=== PATIENT | female | born 1955 | race Caucasian/White ===

== ENCOUNTER 2016-05-22 06:43 | Emergency (ER) | payer OTHER ==
--- NOTE | 2016-05-22 06:52 | PDOC ---
History of Present Illness - General History Source: EMS, Family Exam Limitations: Clinical Condition (Altered Mental status ) - History of Present Illness Initial Comments: 05/22/16 07:25 The patient is a 61 year old female brought in via EMS and presenting with her family, with a significant past medical history of anemia, HTN, diabetes and liver cirrhosis, who presents to the emergency department with altered mental status and confusion onset this morning when she woke up. The family states that this has happened to the patient in the past where she became confused and began to slur her speech. The family reports that the patient only uses her insulin when she wants to use it The family denies any trauma or injury to the patient. The daughter states that the patient contracted Hepatitis C when she had multiple blood transfusions a few decades ago. Fingerstick on bedside: 287 Allergies: None Past surgical history: Cholecystectomy, orthopedic surgery Social history: No alcohol, tobacco or drug use reported <Berlin Chery - Last Filed: 05/22/16 15:55> <Nando Mendieta - Last Filed: 05/22/16 15:57> - General Chief Complaint: CVA/TIA Stated Complaint: BLOOD SUGAR PROBLEM Past History <Berlin Chery - Last Filed: 05/22/16 15:55> - Past Medical History Anemia: Yes Diabetes: Yes HTN: Yes Liver Disease: Yes - Surgical History Cholecystectomy: Yes Orthopedic Surgery: Yes - Psycho/Social/Smoking Cessation Hx Anxiety: No Suicidal Ideation: No Smoking Status: No Smoking History: Never smoked Number of Cigarettes Smoked Daily: 0 Hx Alcohol Use: No Drug/Substance Use Hx: No Substance Use Type: None Hx Substance Use Treatment: No <Nando Mendieta - Last Filed: 05/22/16 15:57> - Past Medical History Allergies/Adverse Reactions: Allergies Allergy/AdvReac Type Severity Reaction Status Date / Time No Known Allergies Allergy Verified 05/22/16 06:49 Home Medications: Ambulatory Orders Nadolol 20 mg PO DAILY 05/22/16 Review of Systems - Review of Systems Able to Perform ROS?: No Comments:: 05/22/16 07:26 Unable to obtain due to patient altered mental status. <Berlin Chery - Last Filed: 05/22/16 15:55> *Physical Exam - Vital Signs Last Vital Signs Temp Pulse Resp BP Pulse Ox 97.7 F 91 H 14 172/85 98 05/22/16 06:50 05/22/16 06:50 05/22/16 06:50 05/22/16 06:50 05/22/16 06:50 - Physical Exam Comments: 05/22/16 07:26 GENERAL: Awake, alert, but non communicative. HEAD: No signs of trauma, normocephalic, atraumatic EYES: Pupils reactive to light. PERRLA, EOMI, sclera anicteric, conjunctiva clear ENT: Auricles normal inspection, hearing grossly normal, nares patent, oropharynx clear without exudates. Moist mucosa NECK: Normal ROM, supple, no lymphadenopathy, JVD, or masses LUNGS: No distress, clear to auscultation bilaterally HEART: Regular rate and rhythm, normal S1 and S2, no murmurs, rubs or gallops, peripheral pulses normal and equal bilaterally. ABDOMEN: Soft, nontender, normoactive bowel sounds. No guarding, no rebound. No masses EXTREMITIES: Normal inspection, Normal range of motion, no edema. No clubbing or cyanosis. NEUROLOGICAL: Does not follow commands. Unable to appreciate NIH stroke scale due to altered mental status with confusion. SKIN: Warm, Dry, normal turgor, no rashes or lesions noted. <Berlin Chery - Last Filed: 05/22/16 15:55> NIH Stroke Scale - Last Known Well Date/Time & Onset Date Last Known Well: 05/21/16 - Initial Evaluation Level of consciousness: Not alert, but arousable with minimal stimulation Ask patient the month and their age: Both incorrect Ask patient to open & close eyes; make fist and let go: Both incorrect Best gaze (horizontal eye movement): Normal Visual field testing: No visual field loss Facial paresis (Show teeth/raise eyebrows/close eyes tight): Normal symmetrical movement Motor Function: Left Arm: Normal Motor Function: Right Arm: Normal (extends arm 90 (or 45) degrees for 10 seconds without drift Motor Function: Left Leg: Normal (extends leg 30 degrees for 5 seconds without drift) Motor Function: Right Leg: Normal (extends leg 30 degrees for 5 seconds without drift) Limb Ataxia: No ataxia Sensory(Use pinprick test arms,legs,trunk,face/side to side): Normal Best language (Describe picture, name items, read sentences): No Aphasia Dysarthria (read several words): Mild to moderate slurring of words Extinction and Inattention: Inattention or extinction bilaterally to one of the sensory modalities (highly uncooperative, will not follow commands, unable to do accurate NIHSS!) - Total Score NIH Stroke Scale Score: 7 <Nando Mendieta - Last Filed: 05/22/16 15:57> tPA Exclusion checklist 3-4.5h - Time Elapsed Date last known well: 05/21/16 - Thrombolytic Therapy Candidate Is patient eligible for thrombolytic therapy: No - Exclusion Criteria 3-4.5 hr SBP greater than 185 or DBP greater than 110mmHg despite tx: No Recent IC/spinal surgery,head trauma or stroke<3mos.: No Hx IC hemorrhage, IC neoplasm, AV malformation or aneurysm: No Active internal bleeding: No Blding diathesis(low plt ct, inc PTT,INR>1.7 or use of NOAC): No CT demonstrates multilobar infarct(>1/3 cerebral hemiphere): No Arterial puncture at noncompressible site in previous 7 days: No Blood glucose concentration less than 50mg/dL (2.7mmol/L): No - Relative Exclusion Criteria 3-4.5 hr Life expectancy <1 yr or severe co-morbid illness: No : No Patient/family refused: No Rapid improvement: No Stroke severity too mild: No Recent acute IL (w/in previous 3 months): No Seizure at onset with postictal residual neuro impairments: No Major surgery or serious trauma w/in previous 14 days: No Recent GI or hemorrhage (w/in previous 21 days): No - Add'l Relative Exclusion 3-4.5 hr Age > 80: No Hx of both diabetes AND prior ischemic stroke: No Taking an oral anticoagulant regardless of INR: No NIHSS >25: No - Ineligibility reason(s) Reasons No tPA given: Outside of window - delayed arrival (woke up like this, outside of window.) <Nando Mendieta - Last Filed: 05/22/16 15:57> Critical Care Time/[facility] Note - Medical Decision Making Note: 05/22/16 07:[address] Reviewed by: Dr. Beau East Impression: No evidence of acute intracranial hemorrhage, edema, midline shift, mass effect, or skull fracture. No CT evidence of acute territorial infarction. Approximately 6 mm x 6.3 mm x 6.5 mm right posterior parafalcine calcified meningioma. Chest X-Ray Reviewed by: Dr. Radha Natarajan Impression: Suboptimal inspiratory effort. CT abdomen and pelvis with contrast Reviewed by: Dr. Huey Mcdaniel Impression: Findings consistent with cirrhosis with splenomegaly and extensice varices, unchanged since 12/05/2015. No acute pathology within the abdomen or pelvis. The patient wants to sign out AMA and is refusing admission. <Berlin Chery - Last Filed: 05/22/16 15:55> - Medical Decision Making Note: 05/22/16 15:56 Patient has capacity and is signing out AMA. Refuses admission. <Nando Mendieta - Last Filed: 05/22/16 15:57> Discharge Disposition <Berlin Chery - Last Filed: 05/22/16 15:55> - Discharge Dispostion Last Admission D/C Date: 12/10/15 Admit: No <Nando Mendieta - Last Filed: 05/22/16 15:57> - Diagnosis Hepatic encephalopathy - Discharge Dispostion Disposition: AGAINST MEDICAL ADVICE Condition at time of disposition: Stable
[2016-05-22 06:54] VITALS: BMI 29.2
[2016-05-22 07:29] LABS: BASOPHIL 0.5 % (0-2.0); EOSINOPHIL 3.1 % (0-4.5); MCHC 32.8 g/dl (32.0-36.0); MEAN CELL VOLUME 82.3 fl (80-96); MEAN PLT VOLUME 9.1 fl (7.5-11.1); NEUTROPHILS 68.9 % (42.8-82.8); PLATELET COUNT 111 K/MM3 (134-434); RDW 17.1 % (11.6-15.6); WHITE BLOOD COUNT 4.7 K/mm3 (4.0-10.0)
[2016-05-22] MEDS ORDERED: NITROGLYCERIN SUBLINGUAL 1/150 0.4 MG TAB SL ONE (07:31)
[2016-05-22 07:44] LABS: BILIRUBIN,TOTAL 1.1 mg/dL (0.2-1.0)
[2016-05-22 07:47] LABS: ALK PHOS 279 U/L (45-117); TROPONIN I < 0.02 ng/ml (0.00-0.05)
[2016-05-22 08:13] LABS: INR 1.42 (0.82-1.09); PROTHROMBIN TIME (PATIENT) 15.7 SEC (9.98-11.88)
[2016-05-22 08:16] LABS: ACTIVATED PTT 30.9 SECONDS (26.9-34.4)
[2016-05-22 08:44] LABS: ALBUMIN 3.4 g/dl (3.4-5.0); ANION GAP 10 (8-16); CALCIUM 8.6 mg/dL (8.5-10.1); CO2 22 mmol/L (21-32); CREATININE 0.6 mg/dL (0.55-1.02); GLUCOSE,RANDOM 252 mg/dL (74-106); SGOT/AST 24 U/L (15-37); SGPT/ALT 26 U/L (12-78); TOT PROT 7.5 g/dl (6.4-8.2)
[2016-05-22 09:16] LABS: URINE APPEARANCE CLEAR; URINE BILIRUBIN NEGATIVE (NEGATIVE); URINE BLOOD NEGATIVE (NEGATIVE); URINE COLOR LTYELLOW; URINE GLUCOSE (UA) 3+ (NEGATIVE); URINE KETONE TRACE (NEGATIVE); URINE LEUK ESTERASE NEGATIVE (NEGATIVE); URINE NITRITE NEGATIVE (NEGATIVE); URINE PROTEIN NEGATIVE (NEGATIVE); URINE UROBILINOGEN NEGATIVE E.U./dl (0.2-1.0)
[2016-05-22 09:50] LABS: URINE MARIJUANA THC NEGATIVE ng/ml (CUTOFF=50)
[2016-05-22] MEDS ORDERED: LACTULOSE 20 GM/30 ML UDC (FOR ORAL USE ONLY) PO ONE (15:50)
[2016-05-22 16:34] VITALS: BP 133/62; PULSE 77; TEMP 97.9
--- NOTE | 2016-05-22 23:19 | EKG ---
Test Reason : Blood Pressure : / mmHG Vent. Rate : 083 BPM Atrial Rate : 083 BPM P-R Int : 142 ms QRS Dur : 094 ms QT Int : 402 ms P-R-T Axes : 054 081 051 degrees QTc Int : 472 ms NORMAL SINUS RHYTHM RSR' OR QR PATTERN IN V1 SUGGESTS RIGHT VENTRICULAR CONDUCTION DELAY BORDERLINE ECG WHEN COMPARED WITH ECG OF 05-DEC-2015 21:56, VENT. RATE HAS DECREASED BY 44 BPM Confirmed by VIRGIL TUCKER MD ([id number]) on 05/22/2016 11:19:17 PM Referred By: Confirmed By:VIRGIL TUCKER MD
== END 2016-05-22 16:34 | disposition left against medical advice (07) ==
LOC: JER 06:43
DX: Z53.21 Procedure and treatment not carried out due to patient leaving prior to being seen by health care provider (principal); E11.9 Type 2 diabetes mellitus without complications; D64.9 Anemia, unspecified; I10 Essential (primary) hypertension
CPT/HCPCS: 36415; 70450-TC; 71010-TC; 74177-TC; 80053; 80307; 81003; 82140; 82550; 84484; 85025; 85610; 85730; 87086; 93005; 93010; 99285-25; Q9967

== ENCOUNTER 2018-04-17 16:09 | Inpatient (IN) | payer OTHER ==
--- NOTE | 2018-04-17 17:27 | PDOC ---
History of Present Illness - General Chief Complaint: Vomiting/Diarrhea Stated Complaint: VOMITING/DIARRHEA Time Seen by Provider: 04/17/18 17:26 History Source: Patient Exam Limitations: No Limitations - History of Present Illness Initial Comments: 04/17/18 17:27 CHIEF COMPLAINT: Vomiting and diarrhea HISTORY OF PRESENT ILLNESS: This is a 63-year-old female with a history of hypertension, cirrhosis, IDDM, and vertigo who presents with three days of "continuous" vomiting and watery diarrhea. She has generalized lower abdominal pain. She denies fevers/chills, dysuria, or any other symptoms. She denies travel. Her daughter (who does not live with her) had similar symptoms requiring IV hydration. They have not eaten in a restaurant together recently. The patient reports that she is able to keep down water, but has diarrhea immediately after any intake. She did take one Immodium today with some relief. She has been feeling dizzy (consistent with prior vertigo symptoms) and fell down 3 steps today. She did not hit her head, lose consciousness, or sustain any injuries. Vital signs on arrival are notable for pulse of 122 and oral temp of 99.9. PCP is Dr. Rojo. REVIEW OF SYSTEMS: GENERAL/CONSTITUTIONAL: No fever or chills. No weakness. No weight change. HEAD, EYES, EARS, NOSE AND THROAT: No change in vision. No ear pain or discharge. No sore throat. CARDIOVASCULAR: No chest pain or palpitations. RESPIRATORY: No cough, wheezing, or shortness of breath. GASTROINTESTINAL: See HPI. GENITOURINARY: No dysuria, frequency, or change in urination. MUSCULOSKELETAL: No joint or muscle swelling or pain. No neck or back pain. SKIN: No rash or easy bruising. NEUROLOGIC: Dizziness/vertigo. PSYCHIATRIC: No depression or anxiety. ENDOCRINE: No increased thirst. No abnormal weight change. HEMATOLOGIC/LYMPHATIC: No anemia, easy bleeding, or history of blood clots. ALLERGIC/IMMUNOLOGIC: No hives or skin allergy. No latex allergy. PHYSICAL EXAM: GENERAL: The patient is awake, alert, and fully oriented, in no acute distress. HEAD: Normal with no signs of trauma. ENT: Pupils equal, round and reactive to light, extraocular movements intact, sclera anicteric, conjunctiva clear. Neck supple. LUNGS: Clear to auscultation bilaterally. Normal excursion. No respiratory distress or use of accessory muscles. CV: RRR, S1/S2, no MRG. Cap refill < 2 sec. ABDOMEN: Soft, non-distended, tender to deep palpation in LLQ. EXTREMITIES: Normal range of motion, no edema. NEUROLOGICAL: Normal speech. Gait deferred. CN II-XII grossly intact. PSYCH: Normal mood, normal affect. SKIN: Warm, dry, normal turgor, no rashes or lesions noted. Past History - Past Medical History Allergies/Adverse Reactions: Allergies Allergy/AdvReac Type Severity Reaction Status Date / Time No Known Allergies Allergy Verified 04/17/18 16:12 Home Medications: Ambulatory Orders Nadolol 20 mg PO DAILY 05/22/16 Enalapril Maleate 2.5 mg PO DAILY 12/17/17 Enalapril Maleate 5 mg PO DAILY 12/17/17 Esomeprazole Magnesium 40 mg PO DAILY 12/17/17 Ferrous Sulfate 325 mg PO DAILY 12/17/17 Insulin Lispro [Humalog Kwikpen] 30 unit SQ DAILY 12/17/17 Lactulose [Cephulac -] 30 ml PO DAILY 12/17/17 Anemia: Yes Asthma: No Cancer: No Cardiac Disorders: No CVA: No COPD: No CHF: No DVT: No Dementia: No Diabetes: Yes GI Disorders: No Disorders: No HTN: Yes Hypercholesterolemia: No Kidney Stones: Yes Liver Disease: Yes Seizures: No Thyroid Disease: No - Surgical History Abdominal Surgery: No Appendectomy: No Cardiac Surgery: No Cholecystectomy: Yes Lung Surgery: No Neurologic Surgery: No Orthopedic Surgery: Yes - Suicide/Smoking/Psychosocial Hx Smoking Status: No Smoking History: Never smoked Have you smoked in the past 12 months: No Number of Cigarettes Smoked Daily: 0 Hx Alcohol Use: No Drug/Substance Use Hx: No Substance Use Type: None Hx Substance Use Treatment: No *Physical Exam - Vital Signs Last Vital Signs Temp Pulse Resp BP Pulse Ox 99.9 F H 121 H 18 165/83 97 04/17/18 16:12 04/17/18 16:12 04/17/18 16:12 04/17/18 16:12 04/17/18 16:12 Moderate Sedation - Procedure Monitoring Vital Signs: Procedure Monitoring Vital Signs Temperature 99.9 F H 04/17/18 16:12 Pulse Rate 121 H 12/27/18 16:12 Respiratory Rate 18 04/17/18 16:12 Blood Pressure 165/83 04/17/18 16:12 O2 Sat by Pulse Oximetry (%) 97 04/17/18 16:12 ED Treatment Course - LABORATORY CBC & Chemistry Diagram: 04/17/18 17:45 04/17/18 17:45 Medical Decision Making - Medical Decision Making 04/17/18 18:06 A/P: 63 year old female with vomiting/diarrhea, tachycardia likely secondary to hypovolemia, and dizziness causing a fall without head trauma/LOC. 1. Labs including CBC, CMP, Mg, lipase, UA 2. Stool cultures if possible 3. IV hydration 4. Zofran 4mg IVP + Meclizine 25mg PO for nausea/vertigo 5. Rectal temp (oral 99.9) 6. CTAP with PO/IV contrast r/o intra-abdominal process, e.g. diverticulitis 7. Re-assess 04/17/18 18:18 Labs notable for WBC 2.8 04/17/18 18:50 Mg 1.7 - replete *DC/Admit/Observation/Transfer - Referrals Referrals: Joel Rojo MD [Primary Care Provider] - - Patient Instructions - Post Discharge Activity
[2018-04-17] MEDS ORDERED: ONDANSETRON 4 MG/2 ML VIAL IVPUSH ONE (17:37)
[2018-04-17] MEDS ORDERED: SODIUM CHLORIDE 1,000 ML IV STA (17:37)
[2018-04-17] MEDS ORDERED: ONDANSETRON 4 MG/2 ML VIAL ONE (17:56)
[2018-04-17 17:58] LABS: BASO % 0.3 % (0-2.0); EOS % 2.8 % (0-4.5); HEMOGLOBIN 13.8 GM/dL (10.7-15.3); LYMPH % 15.5 % (8-40); MCH 33.1 pg (25.7-33.7); MCHC 35.5 g/dl (32.0-36.0); MEAN CELL VOLUME 93.4 fl (80-96); MEAN PLT VOLUME 9.4 fl (7.5-11.1); MONO % 17.5 % (3.8-10.2); NEUT % 63.9 % (42.8-82.8); PLATELET COUNT 75 K/MM3 (134-434); RBC 4.17 M/mm3 (3.60-5.2); RDW 14.3 % (11.6-15.6); WHITE BLOOD COUNT 2.8 K/mm3 (4.0-10.0)
[2018-04-17] MEDS ORDERED: MECLIZINE HCL 25 MG TABLET (FP) PO ONE (17:59)
[2018-04-17] MEDS ORDERED: MECLIZINE HCL 25 MG TABLET (FP) ONE (18:32)
[2018-04-17 18:33] LABS: PLATELET ESTIMATE DECREASED
[2018-04-17 18:38] LABS: ALBUMIN 3.1 g/dl (3.4-5.0); ALK PHOS 188 U/L (45-117); ANION GAP 8 MMOL/L (8-16); BILIRUBIN,TOTAL 1.7 mg/dL (0.2-1); BLOOD UREA NITROGEN 9 mg/dL (7-18); CHLORIDE 102 mmol/L (98-107); CO2 26 mmol/L (21-32); CREATININE 0.6 mg/dL (0.55-1.3); GLUCOSE,RANDOM 174 mg/dL (74-106); LIPASE 368 U/L (73-393); SGPT/ALT 84 U/L (13-61); SODIUM 136 mmol/L (136-145); TOT PROT 6.5 g/dl (6.4-8.2)
[2018-04-17 18:39] LABS: MAGNESIUM 1.7 mg/dL (1.8-2.4); POTASSIUM 3.6 mmol/L (3.5-5.1); SGOT/AST 102 U/L (15-37)
[2018-04-17] MEDS ORDERED: morphine CARPU-JECT 4 MG/1 ML DISP.SYRIN IVPUSH ONE (18:45)
[2018-04-17] MEDS ORDERED: morphine SULFATE 4 MG/ML VIAL ONE (18:48)
--- NOTE | 2018-04-17 19:15 | PDOC ---
*Physical Exam - Vital Signs Last Vital Signs Temp Pulse Resp BP Pulse Ox 99.9 F H 121 H 18 165/83 97 04/17/18 16:12 04/17/18 16:12 04/17/18 16:12 04/17/18 16:12 04/17/18 16:12 - Physical Exam General Appearance: Yes: Appropriately Dressed Cardiovascular: positive: Regular Rhythm, Regular Rate Gastrointestinal/Abdominal: positive: Tender (generalized tenderness), Increased Bowel Sounds Musculoskeletal: negative: Normal Inspection, CVA Tenderness Extremity: positive: Normal Capillary Refill, Normal Inspection Integumentary: positive: Normal Color, Dry, Warm Neurologic: positive: Fully Oriented, Alert, Normal Mood/Affect ED Treatment Course - LABORATORY CBC & Chemistry Diagram: 04/17/18 17:45 04/17/18 17:45 - ADDITIONAL ORDERS Additional order review: Laboratory Results 04/17/18 17:45 Sodium 136 Potassium 3.6 Chloride 102 Carbon Dioxide 26 Anion Gap 8 BUN 9 Creatinine 0.6 Creat Clearance w eGFR > 60 Random Glucose 174 H Calcium 8.0 L Magnesium 1.7 L Total Bilirubin 1.7 H AST 102 H ALT 84 H Alkaline Phosphatase 188 H Total Protein 6.5 Albumin 3.1 L Lipase 368 04/17/18 17:45 RBC 4.17 MCV 93.4 MCHC 35.5 RDW 14.3 MPV 9.4 Neutrophils % 63.9 D Lymphocytes % 15.5 D Monocytes % 17.5 H Eosinophils % 2.8 Basophils % 0.3 - Medications Given in the ED: ED Medications Discontinued Medications Generic Name Dose Route Start Last Admin Trade Name Freq PRN Reason Stop Dose Admin Sodium Chloride 1,000 mls @ 1,000 mls/hr 04/17/18 17:37 04/17/18 18:31 Normal Saline - IV 04/17/18 18:36 1,000 mls/hr ASDIR STA Administration Meclizine HCl 25 mg 04/17/18 17:59 04/17/18 18:33 Antivert - PO 04/17/18 18:00 25 mg ONCE ONE Administration Morphine Sulfate 4 mg 04/17/18 18:45 04/17/18 18:49 Morphine Injection - IVPUSH 04/17/18 18:46 4 mg ONCE ONE Administration Ondansetron HCl 4 mg 04/17/18 17:37 04/17/18 17:59 Zofran Injection IVPUSH 04/17/18 17:38 4 mg ONCE ONE Administration Medical Decision Making - Medical Decision Making 04/17/18 19:41 c/o generalized abdominal discomfort. pending CTAP. 04/17/18 20:57 patient now feeling better. pending CTAP. if negative will PO challenge. may d/ c home if PO is tolerated. 04/17/18 22:43 CTAP : liver cirrhosis, acute pancreatitis, cecum wall edema / duodenitis. mild to moderate ascites. UA: + leuks increased WBC will place on observation status for symptom improvement. will cover with ceftriaxone and flagyl. patient with vertigo. needs IVF hydration. 04/18/18 00:07 Orthostatic v/s supine: HR 100/ b/p 145/81 sitting: HR 101/ 98/ 155/76 standing HR 115 04/18/18 00:09 patient signed out to Beatriz westbrook [employer] for OBS tele stay *DC/Admit/Observation/Transfer Diagnosis at time of Disposition: Gastroenteritis and colitis, viral, Vertigo UTI (urinary tract infection) Qualifiers: Urinary tract infection type: acute cystitis Hematuria presence: without hematuria Qualified Code(s): N30.00 - Acute cystitis without hematuria - Discharge Dispostion Decision to Admit order: Yes - Referrals - Patient Instructions - Post Discharge Activity
[2018-04-17] MEDS ORDERED: MAGNESIUM 1GM/D5W - 1 GM/100 ML IVPB IVPB ONE (20:49)
[2018-04-17] MEDS: SODIUM CHLORIDE 1,000 ML IV SCH (21:06)
[2018-04-17 21:12] LABS: URINE APPEARANCE CLEAR; URINE BILIRUBIN NEGATIVE (<2.0 mg/dL); URINE COLOR AMBER; URINE GLUCOSE (UA) 2+ (NEGATIVE); URINE KETONE TRACE (NEGATIVE); URINE LEUK ESTERASE 1+ (NEGATIVE); URINE NITRITE NEGATIVE (NEGATIVE); URINE PROTEIN 2+ (NEGATIVE); URINE UROBILINOGEN 4.0 E.U/dl mg/dL (0.2-1.0)
[2018-04-17 21:25] LABS: EPI CELLS RARE /HPF (FEW); URINE BACTERIA RARE /hpf (NONE SEEN); URINE MUCUS MODERATE
--- NOTE | 2018-04-17 23:18 | HP ---
Admitting History and Physical - Primary Care Physician PCP: Joel Rojo - Admission Chief Complaint: Vomiting, Diarrhea, Dizziness History of Present Illness: This is a 63 y/o woman with a PMHx of: Cirrhosis, Esophageal Varices, Hepatitis C (on Harvoni), HTN, IDDM, Anemia, Renal Calculi. Who presents to the ED with non bloody, non-bilious vomiting and watery non-bloody diarrhea x 3 days. Patient reports eating home cooked food then developed LLQ. Patient reports that her daughter also developed GI symptoms. Patient reports taking Imodium with some improvement. Patient reports dizziness similar to past episodes of Vertigo. Patient states" I fell down 3 steps today". She denies LOC or head injury. Patient denies fever, chills, SOB, CP, palpitations, constipation., melena, hematochezia, hematuria. Body Technician/Painter: Dr. Theodore ([facility]), [place] [phone] History Source: Patient Limitations to Obtaining History: No Limitations - Past Medical History Cardiovascular: Yes: HTN Gastrointestinal: Yes: Esophageal Varices Hepatobiliary: Yes: Cirrhosis, Hepatitis C Renal/: Yes: Renal Calculi Heme/Onc: Yes: Anemia Endocrine: Yes: Diabetes Mellitus - Past Surgical History Past Surgical History: Yes: Cholecystectomy, Oopherectomy - Smoking History Smoking history: Never smoked Have you smoked in the past 12 months: No Aproximately how many cigarettes per day: 0 - Alcohol/Substance Use Hx Alcohol Use: No History of Substance Use: reports: None - Social History Usual Living Arrangement: Yes: With Spouse ADL: Independent History of Recent Travel: No Home Medications - Allergies Allergies/Adverse Reactions: Allergies Allergy/AdvReac Type Severity Reaction Status Date / Time No Known Allergies Allergy Verified 04/17/18 16:12 - Home Medications Home Medications: Ambulatory Orders Nadolol 20 mg PO DAILY 05/22/16 Enalapril Maleate 2.5 mg PO DAILY 12/17/17 Enalapril Maleate 5 mg PO DAILY 12/17/17 Esomeprazole Magnesium 40 mg PO DAILY 12/17/17 Ferrous Sulfate 325 mg PO DAILY 12/17/17 Insulin Lispro [Humalog Kwikpen] 30 unit SQ DAILY 12/17/17 Lactulose [Cephulac -] 30 ml PO DAILY 12/17/17 Family Disease History - Family Disease History Family Disease History: Diabetes: Father, Mother Review of Systems - Review of Systems Constitutional: reports: Loss of Appetite Eyes: reports: No Symptoms HENT: reports: No Symptoms Neck: reports: No Symptoms Cardiovascular: reports: No Symptoms Respiratory: reports: No Symptoms Gastrointestinal: reports: Abdominal Pain, Diarrhea, Nausea, Vomiting. denies: Melena, Rectal Bleeding, Vomiting Blood Genitourinary: reports: No Symptoms Breasts: reports: No Symptoms Reported Musculoskeletal: reports: No Symptoms Integumentary: reports: No Symptoms Neurological: reports: Dizziness, Headache Endocrine: reports: No Symptoms Hematology/Lymphatic: reports: No Symptoms Psychiatric: reports: No Symptoms Pain Intensity: 5 Physical Examination Vital Signs: Vital Signs Temperature 99.9 F H 04/17/18 16:12 Pulse Rate 121 H 04/17/18 16:12 Respiratory Rate 18 04/17/18 16:12 Blood Pressure 165/83 04/17/18 16:12 O2 Sat by Pulse Oximetry (%) 97 04/17/18 16:12 Constitutional: Yes: No Distress, Anxious, Obese Eyes: Yes: WNL, Conjunctiva Clear, EOM Intact, PERRL HENT: Yes: WNL, Atraumatic, Normocephalic Neck: Yes: WNL, Supple, Trachea Midline Cardiovascular: Yes: Tachycardia, S1, S2 Respiratory: Yes: WNL, Regular, CTA Bilaterally Gastrointestinal: Yes: Abdomen, Obese, Ascites, Hypoactive Bowel Sounds, Splenomegaly, Tenderness Renal/: Yes: WNL Breast(s): Yes: WNL Musculoskeletal: Yes: WNL Peripheral Pulses WNL: Yes Neurological: Yes: WNL, Alert, Oriented, Cran Nerves II-XII Intact ...Motor Strength: WNL Psychiatric: Yes: Alert, Oriented, Agitated Labs: CBC, BMP 04/17/18 17:45 04/17/18 17:45 Laboratory Results - last 24 hr 04/17/18 04/17/18 04/17/18 17:45 17:45 20:45 WBC 2.8 L RBC 4.17 Hgb 13.8 Hct 39.0 MCV 93.4 MCH 33.1 MCHC 35.5 RDW 14.3 Plt Count 75 L D MPV 9.4 Absolute Neuts (auto) 1.8 Neutrophils % 63.9 D Neutrophils % (Manual) 57.0 Band Neutrophils % 9.0 Lymphocytes % 15.5 D Lymphocytes % (Manual) 17.0 Monocytes % 17.5 H Monocytes % (Manual) 13 H Eosinophils % 2.8 Eosinophils % (Manual) 3.0 Basophils % 0.3 Basophils % (Manual) 1.0 Nucleated RBC % 0 Platelet Estimate Decreased Platelet Comment No clumping noted Sodium 136 Potassium 3.6 Chloride 102 Carbon Dioxide 26 Anion Gap 8 BUN 9 Creatinine 0.6 Creat Clearance w eGFR > 60 Random Glucose 174 H Calcium 8.0 L Magnesium 1.7 L Total Bilirubin 1.7 H AST 102 H ALT 84 H Alkaline Phosphatase 188 H Total Protein 6.5 Albumin 3.1 L Lipase 368 Urine Color Regina Urine Appearance Clear Urine pH 5.0 D Ur Specific Mcpherson 1.028 Urine Protein 2+ H Urine Glucose (UA) 2+ H Urine Ketones Trace H Urine Blood 1+ H Urine Nitrite Negative Urine Bilirubin Negative Urine Urobilinogen 4.0 e.u/dl H Ur Leukocyte Esterase 1+ H Urine WBC (Auto) 29 Urine RBC (Auto) 3 Ur Epithelial Cells Rare Urine Bacteria Rare Urine Mucus Moderate Intake & Output 04/15/18 04/16/18 04/17/18 04/18/18 23:59 23:59 23:59 23:59 Weight 78.018 kg 79.197 kg Current Medications Generic Name Dose Route Start Last Admin Trade Name Karloq PRN Reason Stop Dose Admin Sodium Chloride 1,000 mls @ 100 mls/hr 04/17/18 19:45 04/18/18 06:15 Normal Saline - IV 100 mls/hr ASDIR NANCY Administration Metronidazole 250 mg in 50 mls @ 50 mls/hr 04/18/18 10:00 Flagyl 250mg Premixed Ivpb - IVPB Q8H-IV NANCY Ceftriaxone Sodium 1 gm/ 100 mls @ 200 mls/hr 04/18/18 10:00 Dextrose IVPB DAILY NANCY Protocol Imaging - Results Chest X-ray: Image Reviewed Cat Scan: Report Reviewed, Image Reviewed Problem List - Problems (1) Gastroenteritis and colitis, viral Code(s): A08.4 - VIRAL INTESTINAL INFECTION, UNSPECIFIED (2) Abdominal pain Code(s): R10.9 - UNSPECIFIED ABDOMINAL PAIN Qualifiers: Abdominal location: generalized Qualified Code(s): R10.84 - Generalized abdominal pain (3) UTI (urinary tract infection) Code(s): N39.0 - URINARY TRACT INFECTION, SITE NOT SPECIFIED Qualifiers: Urinary tract infection type: acute cystitis Hematuria presence: without hematuria Qualified Code(s): N30.00 - Acute cystitis without hematuria (4) Vertigo Code(s): R42 - DIZZINESS AND GIDDINESS (5) Cirrhosis of liver Code(s): K74.60 - UNSPECIFIED CIRRHOSIS OF LIVER Qualifiers: Hepatic cirrhosis type: unspecified biliary cirrhosis Qualified Code(s): K74.5 - Biliary cirrhosis, unspecified (6) Thrombocytopenia Code(s): D69.6 - THROMBOCYTOPENIA, UNSPECIFIED (7) Hypomagnesemia Code(s): E83.42 - HYPOMAGNESEMIA (8) Transaminitis Code(s): R74.0 - NONSPEC ELEV OF LEVELS OF TRANSAMNS & LACTIC ACID DEHYDRGNSE Assessment/Plan This is a 63 y/o woman with a PMHx of Cirrhosis, Esophageal Varices, Hepatitis C (treated with Harvoni), HTN, IDDM, Anemia. Placed in Tele Observation for Gastroenteritis, Abdominal Pain, Tachycardia, Hepatic Cirrhosis for further evaluation of their emergent condition. Plan: Will place in Tele Observation Secondary to Orthostatic changes CTAP showed - ? acute pancreatitis, colitis, hepatic cirrhosis, chronic portal vein thrombosis, splenomegaly, extensive varices Appreciate GI Consult Appreciate ID Consult Stool Culture, C- Diff- pending Given Flagyl in ED will continue UA showed +1 leukoctye esterase, WBC 29 Urine Culture-pending Started on Ceftriaxone will continue Monitor CBC, BMP Thrombocytopenia likely secondary to Hepatic Failure Stool Occult-pending Hypomagnesemia likely secondary to Hepatic failure, Mg repleted in ED, will continue to monitor and treat accordingly Continue IVF Continue Meclizine prn Orthostatics FEN- IVF, Replete lytes prn, Diabetic Liquid Diet DVT ppx- OOB, SCDs, Hold AC secondary to thrombocytopenia Code Status: Full Code Dispo: Observation Visit type - Emergency Visit Emergency Visit: Yes ED Registration Date: 04/17/18 Care time: The patient presented to the Emergency Department on the above date and was hospitalized for further evaluation of their emergent condition. - New Patient This patient is new to me today: Yes Date on this admission: 04/17/18 - Critical Care Critical Care patient: No
[2018-04-17] MEDS ORDERED: cefTRIAXone SODIUM 1 GM VIAL ONE (23:43)
[2018-04-18] MEDS ORDERED: oxyCODONE HCL 5 MG TABLET PO ONE (02:16)
[2018-04-18] MEDS ORDERED: oxyCODONE HCL 5 MG TABLET ONE (02:42)
[2018-04-18] MEDS: SODIUM CHLORIDE 1,000 ML IV SCH ×2 (06:15→21:48)
[2018-04-18] MEDS ORDERED: MECLIZINE HCL 25 MG TABLET (FP) PO PRN (08:22)
[2018-04-18] MEDS ORDERED: cefTRIAXone SODIUM 1 GM VIAL ONE (09:00)
[2018-04-18] MEDS ORDERED: DEXTROSE 5%-WATER - 50 ML IVPB ONE (09:00)
[2018-04-18] MEDS: ENALAPRIL MALEATE 2.5 MG TABLET (FP) PO SCH (09:13)
[2018-04-18] MEDS: CEFTRIAXONE 1 GM in DEXTROSE 5%-WATER - 50 ML IVPB SCH (09:13)
[2018-04-18] MEDS: FAMOTIDINE 20 MG/50 ML IVPB 20 MG/50 ML MG IVPB SCH ×2 (09:13→21:49)
[2018-04-18] MEDS: NADOLOL 20 MG TABLET (FP) PO SCH (09:13)
[2018-04-18 09:22] LABS: BASO % 0.5 % (0-2.0); EOS % 2.7 % (0-4.5); HEMATOCRIT 35.2 % (32.4-45.2); HEMOGLOBIN 11.7 GM/dL (10.7-15.3); LYMPH % 26.4 % (8-40); MCH 31.4 pg (25.7-33.7); MCHC 33.1 g/dl (32.0-36.0); MEAN CELL VOLUME 94.8 fl (80-96); MEAN PLT VOLUME 8.6 fl (7.5-11.1); MONO % 20.4 % (3.8-10.2); PLATELET COUNT 63 K/MM3 (134-434); RBC 3.72 M/mm3 (3.60-5.2); RDW 14.3 % (11.6-15.6); WHITE BLOOD COUNT 2.3 K/mm3 (4.0-10.0)
[2018-04-18] MEDS ORDERED: PT OWN MED DRAWER 7, Y5N ONE ×2 (09:24→17:20)
[2018-04-18 09:48] LABS: ANION GAP 8 MMOL/L (8-16); BLOOD UREA NITROGEN 7 mg/dL (7-18); CALCIUM 7.4 mg/dL (8.5-10.1); CHLORIDE 104 mmol/L (98-107); CO2 26 mmol/L (21-32); CREATININE 0.4 mg/dL (0.55-1.3); GLUCOSE,RANDOM 177 mg/dL (74-106); MAGNESIUM 1.7 mg/dL (1.8-2.4); PHOSPHOROUS 3.2 mg/dL (2.5-4.9); POTASSIUM 3.3 mmol/L (3.5-5.1); SODIUM 137 mmol/L (136-145)
[2018-04-18] MEDS ORDERED: morphine SULFATE 4 MG/ML VIAL IVPUSH ONE (11:07)
[2018-04-18] MEDS ORDERED: PANTOPRAZOLE SODIUM 40 MG VIAL IVPUSH ONE (11:08)
--- NOTE | 2018-04-18 11:14 | PN ---
Progress Note, Physician Chief Complaint: ACUTE DISTRESS CRYING WITH ABD PAIN - Current Medication List Current Medications: Active Medications Enalapril Maleate (Vasotec -) 2.5 mg PO DAILY [facility] Last Admin: 04/18/18 09:13 Dose: 2.5 mg Sodium Chloride (Normal Saline -) 1,000 mls @ 100 mls/hr IV ASDIR [facility] Last Admin: 04/18/18 06:15 Dose: 100 mls/hr Metronidazole (Flagyl 250mg Premixed Ivpb -) 250 mg in 50 mls @ 50 mls/hr IVPB Q8H-IV NANCY Last Admin: 04/18/18 10:04 Dose: 50 mls/hr Ceftriaxone Sodium 1 gm/ (Dextrose) 50 mls @ 100 mls/hr IVPB DAILY [facility]; Protocol Last Admin: 04/18/18 09:13 Dose: 100 mls/hr Famotidine/Sodium Chloride (Pepcid 20 Mg Premixed Ivpb -) 20 mg in 50 mls @ 100 mls/hr IVPB BID [facility] Last Admin: 04/18/18 09:13 Dose: 100 mls/hr Potassium Chloride (Potassium Chloride 10 Meq Premix Ivpb -) 10 meq in 100 mls @ 100 mls/hr IVPB Q60M [facility] Stop: 04/18/18 12:14 Meclizine HCl (Antivert -) 25 mg PO Q6H PRN PRN Reason: VERTIGO Morphine Sulfate (Morphine Sulfate) 4 mg IVPUSH Q6H PRN PRN Reason: PAIN LEVEL 7 - 10 Nadolol (Corgard -) 20 mg PO DAILY [facility] Last Admin: 04/18/18 09:13 Dose: 20 mg - Objective Vital Signs: Vital Signs Temperature 99.2 F 04/18/18 10:00 Pulse Rate 94 H 04/18/18 10:00 Respiratory Rate 20 04/18/18 10:00 Blood Pressure 166/74 04/18/18 10:00 O2 Sat by Pulse Oximetry (%) 97 04/18/18 09:00 Constitutional: Yes: Moderate Distress Eyes: Yes: WNL HENT: Yes: WNL Neck: Yes: WNL Cardiovascular: Yes: WNL Respiratory: Yes: WNL Gastrointestinal: Yes: Soft, Tenderness Genitourinary: Yes: WNL Musculoskeletal: Yes: WNL Extremities: Yes: WNL Edema: No Peripheral Pulses WNL: Yes Integumentary: Yes: WNL Wound/Incision: Yes: Clean/Dry Neurological: Yes: WNL ...Motor Strength: WNL Psychiatric: Yes: WNL Labs: CBC, BMP 04/18/18 09:00 04/18/18 09:00 Problem List - Problems (1) Gastroenteritis and colitis, viral Code(s): A08.4 - VIRAL INTESTINAL INFECTION, UNSPECIFIED (2) Thrombocytopenia Code(s): D69.6 - THROMBOCYTOPENIA, UNSPECIFIED (3) Transaminitis Code(s): R74.0 - NONSPEC ELEV OF LEVELS OF TRANSAMNS & LACTIC ACID DEHYDRGNSE (4) Abdominal pain Code(s): R10.9 - UNSPECIFIED ABDOMINAL PAIN Qualifiers: Abdominal location: generalized Qualified Code(s): R10.84 - Generalized abdominal pain (5) Cirrhosis of liver Code(s): K74.60 - UNSPECIFIED CIRRHOSIS OF LIVER Qualifiers: Hepatic cirrhosis type: unspecified biliary cirrhosis Qualified Code(s): K74.5 - Biliary cirrhosis, unspecified (6) Hepatic encephalopathy Code(s): K72.90 - HEPATIC FAILURE, UNSPECIFIED WITHOUT COMA Assessment/Plan SURGICAL EVAL MORPHINE IV NOW CORRECTING K+ PPI IV X 1 IV ABX ZOFRAN PRN
[2018-04-18] MEDS ORDERED: MAGNESIUM SULF 50% (8.12 MEQ/2 ML-1 GM VIAL) IVPB ONE (11:35)
[2018-04-18 12:24] LABS: ANISOCYTOSIS 0; MACROCYTOSIS 0; PLATELET ESTIMATE DECREASED
[2018-04-18] MEDS ORDERED: KCL 10 MEQ IVPB 10 MEQ/100 ML INFUS.BAG IVPB SCH (12:30)
--- NOTE | 2018-04-18 16:13 | PN ---
Progress Note (short form) - Note Progress Note: ID consult dictated imp/reccd 63 yo female with cirrhosis admitted from home with vomiting and diarrhea- non bloody =clear, since saturday stoppped vomiting am, continued diarrhea like water everytime she ate or drank no fevers or chills reports multiple episodes of watery diarrhea has chronic midepigastric pain that is worse then usual daughter with a similar vomiting diarrhea illness that has resolved no unusual foods pet dog/cat reports other people in her building have been sick as well no cough vomiting has subsided lightheaded this am on the way to the hospital [facility] cirrhosis no travel no recent antibiotics ct scan with colitis, cirrhosis, varices suspect viral gastroenteritis, ct scan with ?colitis would screen for norovirus cdiff stool culture and wbc blood cultures rocephin/flagyl to continue gi to see cirrhosis history hep c prolionged qtc on ekg awaiting official reading Problem List - Problems (1) Gastroenteritis and colitis, viral Code(s): A08.4 - VIRAL INTESTINAL INFECTION, UNSPECIFIED (2) Cirrhosis of liver Code(s): K74.60 - UNSPECIFIED CIRRHOSIS OF LIVER Qualifiers: Hepatic cirrhosis type: unspecified biliary cirrhosis Qualified Code(s): K74.5 - Biliary cirrhosis, unspecified
--- NOTE | 2018-04-18 16:44 | CON.GI ---
Consult Consult Specialty:: GI Referred by:: Joel Rojo md - History of Present Illness History of Present Illness: 64 y/o female patient with past medical history of CHC complicated Cirrhosis,s/ p antiviral with sustained viral response, DM, HTN, vertigo. She presented to ER with several days of watery diarrhea and vomiting. Patient had non-bloody diarrhea 4-5 times a day associated with lower abdominal pain. No recent ABT or recent travel. - Past Medical History Cardio/Vascular: Yes: HTN Gastrointestinal: Yes: Esophageal Varices Hepatobiliary: Yes: Cirrhosis, Hepatitis C Renal/: Yes: Renal Calculi Endocrine: Yes: Diabetes Mellitus - Past Surgical History Past Surgical History: Yes: Cholecystectomy, Oopherectomy - Alcohol/Substance Use Hx Alcohol Use: No History of Substance Use: reports: None - Smoking History Smoking history: Never smoked Have you smoked in the past 12 months: No Aproximately how many cigarettes per day: 0 - Social History ADL: Independent History of Recent Travel: No Home Medications - Allergies Allergies/Adverse Reactions: Allergies Allergy/AdvReac Type Severity Reaction Status Date / Time No Known Allergies Allergy Verified 04/17/18 16:12 - Home Medications Home Medications: Ambulatory Orders Nadolol 20 mg PO DAILY 05/22/16 Enalapril Maleate 2.5 mg PO DAILY 12/17/17 Enalapril Maleate 5 mg PO DAILY 12/17/17 Esomeprazole Magnesium 40 mg PO DAILY 12/17/17 Ferrous Sulfate 325 mg PO DAILY 12/17/17 Insulin Lispro [Humalog Kwikpen] 30 unit SQ DAILY 12/17/17 Lactulose [Cephulac -] 30 ml PO DAILY 12/17/17 Family Disease History - Family Disease History Family Disease History: Diabetes: Father, Mother Review of Systems - Review of Systems Constitutional: denies: No Symptoms, Chills, Diaphoresis, Fever, Lethargy, Loss of Appetite, Malaise, Night Sweats, Unintentional Wgt. Loss, Weakness, Other HENT: denies: No Symptoms, Difficult Swallowing, Ear Discharge, Ear Pain, Epistaxis, Gingival Bleeding, Hearing Loss, Mouth Swelling, Nasal Congestion, Ocular Prosthesis, Throat Pain, Toothache, Ringing in Ears, Other Neck: denies: No Symptoms, Decreased ROM, Lumps, Pain on Movement, Stiffness, Swollen Glands, Tenderness, Other Cardiovascular: denies: No Symptoms, Chest Pain, Edema, Palpitations, Shortness of Breath, Other Gastrointestinal: reports: Abdominal Pain, Diarrhea. denies: Constipation, Dysphagia, Indigestion, Melena, Nausea, Rectal Bleeding Physical Exam-GI Vital Signs: Vital Signs Temperature 98.4 F 04/18/18 14:00 Pulse Rate 70 04/18/18 14:00 Respiratory Rate 20 04/18/18 14:00 Blood Pressure 138/67 04/18/18 14:00 O2 Sat by Pulse Oximetry (%) 97 04/18/18 09:00 Constitutional: Yes: Well Nourished Eyes: Yes: Conjunctiva Clear HENT: Yes: Atraumatic Neck: Yes: Supple Cardiovascular: Yes: Regular Rate and Rhythm Respiratory: Yes: CTA Bilaterally Gastrointestinal Inspection: No: Ascites, Distention ...Auscultate: Yes: Normoactive Bowel Sounds ...Palpate: Yes: Soft, Tenderness, Epigastium. No: Firm/Rigid, Guarding, Mass, Pulsatile Mass, Splenomegaly, Tenderness Labs: CBC, BMP 04/18/18 09:00 04/18/18 09:00 Imaging - Results Cat Scan: Report Reviewed Problem List - Problems (1) Infectious diarrhea Assessment/Plan: R>continue Ceftriaxone and Flagyl Code(s): A09 - INFECTIOUS GASTROENTERITIS AND COLITIS, UNSPECIFIED (2) Epigastric abdominal pain Assessment/Plan: r/o Peptic ulcer disease R> IV Protonix IV Zofran IV Reglan Code(s): R10.13 - EPIGASTRIC PAIN (3) History of esophageal varices Code(s): Z87.19 - PERSONAL HISTORY OF OTHER DISEASES OF THE DIGESTIVE SYSTEM
--- NOTE | 2018-04-18 17:13 | CONS ---
DATE OF CONSULTATION: DATE OF DICTATION: 04/18/2018 REQUESTING PHYSICIAN: Joel Rojo M.D. CONSULTING PHYSICIAN: Syeda Hernández M.D. HISTORY OF PRESENT ILLNESS: This is a 63-year-old woman, past medical history of liver cirrhosis, esophageal varices, hepatitis C, she has been treated with Harvoni in the past she reports with resolution of her hepatitis C viremia. Hypertension, diabetes. She presents to the emergency room with a 3-day history of nonbloody vomiting and diarrhea. She reports on Saturday she started vomiting and having diarrhea. It was all clear fluid. It looked like water. The vomiting stopped on morning. She has not vomited since that time. Anything she eats she says she has an immediate bowel movement that is watery, is large volume. There is no blood in it. She reports her daughter has similar symptoms which have subsequently resolved. She does live with her daughter but during the period of her illness she was not with her daughter, she was staying at a niece's house. She also reports in apartment building, other people have had vomiting, diarrheal illnesses. She denies any special foods. There is no history of any travel. She has not recently been on any antibiotics. This morning she felt dizzy, and her son brought her to the emergency room. She denies fevers or chills, shortness of breath, cough. Her biological technician is Dr. Theodore in the [place]. PAST MEDICAL HISTORY: Notable for hypertension, esophageal varices, liver cirrhosis, hepatitis C treated with Harvoni, renal calculi, anemia, diabetes. She is status post cholecystectomy, and she has had 1 ovary removed. FAMILY HISTORY: Noncontributory. There have been diabetes in both her parents. SOCIAL HISTORY: No history of cigarette or substance use. She lives with her daughter. There has been no recent travel. She is on disability. ALLERGIES: No known drug allergies. MEDICATIONS AT HOME: Include nadolol, enalapril, omeprazole, ferrous sulfate, insulin, and lactulose. REVIEW OF SYSTEMS: She has chronic upper abdominal pain which she reports midepigastric, which she reports is worse than usual. Her T-max is 99.9 on admission, currently 98.4, pulse of 70, blood pressure 138/67, respiratory rate 20, she is saturating 97% on room air. PHYSICAL EXAMINATION: HEENT: Normocephalic. Eyes are anicteric. NECK: Supple. LUNGS: Clear to auscultation. HEART: Regular rate and rhythm. ABDOMEN: She has bowel sounds. She has midepigastric discomfort to palpation and bilateral lower abdominal discomfort to palpation. EXTREMITIES: Without edema. LABORATORY: White count on admission was 2.8, this morning is 2.3, hemoglobin 11.7, platelets of 63,000. She has 57% neutrophils for an ANC of over 1000. Chemistries are notable for BUN and creatinine of 7 and 0.4. Her total bilirubin is 1.7, AST 102, ALT 84, alkaline phosphatase 188. Urinalysis shows 1+ leukocytes, 29 white cells. A C. difficile was sent and is negative. CAT scan of the abdomen and pelvis is notable for liver cirrhosis with varices, splenomegaly. She is status post cholecystectomy. She has a small amount of pelvic ascites. She has possible development of pancreatic head swelling. Some concentric edema is noted in the duodenum as well as the cecal wall. IMPRESSION: 1. In summary, this is a 63-year-old female with cirrhosis admitted with what appears to be a viral gastroenteritis. The CAT scan shows a question of colitis. I would screen her for an oral virus at this time. Clostridium difficile is pending. Would send stool cultures and white cells. Currently she has stopped having diarrhea. Would obtain blood cultures as well given her leukopenia. Her ANC is currently over 1000. Would continue her Rocephin and Flagyl and await gastrointestinal consultation. Would repeat her labs in the morning and continue intravenous fluids. 2. History of liver cirrhosis. History of hepatitis C. Further recommendations to follow. [place] [id number]
[2018-04-18] MEDS: morphine SULFATE 4 MG/ML VIAL IVPUSH PRN (17:37)
[2018-04-18] MEDS: METOCLOPRAMIDE HCL INJECTION 10 MG/2 ML VIAL IVPB SCH (18:33)
[2018-04-18] MEDS: ONDANSETRON 4 MG/2 ML VIAL IVPB SCH ×2 (18:33→21:49)
--- NOTE | 2018-04-18 19:14 | EKG ---
Test Reason : Blood Pressure : / mmHG Vent. Rate : 096 BPM Atrial Rate : 096 BPM P-R Int : 144 ms QRS Dur : 096 ms QT Int : 388 ms P-R-T Axes : 053 077 036 degrees QTc Int : 490 ms NORMAL SINUS RHYTHM PROLONGED QT ABNORMAL ECG WHEN COMPARED WITH ECG OF 22-MAY-2016 06:48, RSR' PATTERN IN V1 IS NO LONGER PRESENT Confirmed by MORRIS TAI, CASS ([id number]) on 04/18/2018 7:14:23 PM Referred By: Confirmed By:CASS CACERES MD
[2018-04-18] MEDS ORDERED: PANTOPRAZOLE SODIUM 40 MG VIAL ONE (20:33)
[2018-04-18] MEDS ORDERED: SODIUM CHLORIDE 100 ML IVPB ONE (20:33)
[2018-04-18] MEDS: PANTOPRAZOLE SODIUM 40 MG in SODIUM CHLORIDE 100 ML IVPB SCH (21:49)
[2018-04-19] MEDS ORDERED: PT OWN MED DRAWER 7, Y5N ONE (00:58)
[2018-04-19] MEDS: ONDANSETRON 4 MG/2 ML VIAL IVPB SCH ×2 (01:30→06:19)
[2018-04-19] MEDS: METOCLOPRAMIDE HCL INJECTION 10 MG/2 ML VIAL IVPB SCH ×3 (01:30→17:35)
[2018-04-19] MEDS: morphine SULFATE 4 MG/ML VIAL IVPUSH PRN ×2 (01:30→17:13)
[2018-04-19 08:00] LABS: BASO % 0.4 % (0-2.0); EOS % 3.2 % (0-4.5); HEMATOCRIT 34.6 % (32.4-45.2); HEMOGLOBIN 12.5 GM/dL (10.7-15.3); MCH 33.6 pg (25.7-33.7); MCHC 36.2 g/dl (32.0-36.0); MEAN CELL VOLUME 92.8 fl (80-96); MEAN PLT VOLUME 9.2 fl (7.5-11.1); MONO % 16.8 % (3.8-10.2); NEUT % 54.6 % (42.8-82.8); PLATELET COUNT 98 K/MM3 (134-434); RBC 3.73 M/mm3 (3.60-5.2); RDW 14.1 % (11.6-15.6); WHITE BLOOD COUNT 4.1 K/mm3 (4.0-10.0)
[2018-04-19] MEDS ORDERED: ONDANSETRON 4 MG/2 ML VIAL IVPB PRN (08:00)
[2018-04-19 08:34] LABS: ALBUMIN 2.6 g/dl (3.4-5.0); ALK PHOS 149 U/L (45-117); ANION GAP 7 MMOL/L (8-16); BILIRUBIN,TOTAL 1.3 mg/dL (0.2-1); BLOOD UREA NITROGEN 6 mg/dL (7-18); CALCIUM 7.1 mg/dL (8.5-10.1); CHLORIDE 103 mmol/L (98-107); CO2 27 mmol/L (21-32); CREATININE 0.5 mg/dL (0.55-1.3); GLUCOSE,RANDOM 127 mg/dL (74-106); MAGNESIUM 1.8 mg/dL (1.8-2.4); PHOSPHOROUS 2.7 mg/dL (2.5-4.9); POTASSIUM 3.5 mmol/L (3.5-5.1); SGOT/AST 66 U/L (15-37); SGPT/ALT 73 U/L (13-61); SODIUM 137 mmol/L (136-145); TOT PROT 5.6 g/dl (6.4-8.2)
[2018-04-19] MEDS ORDERED: PANTOPRAZOLE SODIUM 40 MG VIAL ONE ×2 (09:07→21:21)
[2018-04-19] MEDS ORDERED: SODIUM CHLORIDE 100 ML IVPB ONE ×2 (09:07→21:22)
[2018-04-19] MEDS ORDERED: DEXTROSE 5%-WATER - 50 ML IVPB ONE (09:07)
[2018-04-19] MEDS ORDERED: cefTRIAXone SODIUM 1 GM VIAL ONE (09:07)
[2018-04-19] MEDS: CEFTRIAXONE 1 GM in DEXTROSE 5%-WATER - 50 ML IVPB SCH (10:06)
[2018-04-19] MEDS: ENALAPRIL MALEATE 2.5 MG TABLET (FP) PO SCH (10:06)
[2018-04-19] MEDS: NADOLOL 20 MG TABLET (FP) PO SCH (10:06)
[2018-04-19] MEDS: FAMOTIDINE 20 MG/50 ML IVPB 20 MG/50 ML MG IVPB SCH ×2 (10:06→21:41)
[2018-04-19] MEDS: PANTOPRAZOLE SODIUM 40 MG in SODIUM CHLORIDE 100 ML IVPB SCH ×2 (10:06→21:41)
--- NOTE | 2018-04-19 13:13 | PN ---
Progress Note, Physician Chief Complaint: Vomiting, Diarrhea, Dizziness History of Present Illness: NAD feels better diarrhea improved-less frequent more formed On IV abx Seen by ID, GI and general sx - Current Medication List Current Medications: Active Medications Enalapril Maleate (Vasotec -) 2.5 mg PO DAILY [facility] Last Admin: 04/19/18 10:06 Dose: 2.5 mg Sodium Chloride (Normal Saline -) 1,000 mls @ 100 mls/hr IV ASDIR NANCY Last Admin: 04/18/18 21:48 Dose: 100 mls/hr Metronidazole (Flagyl 250mg Premixed Ivpb -) 250 mg in 50 mls @ 50 mls/hr IVPB Q8H-IV NANCY Last Admin: 04/19/18 12:21 Dose: 50 mls/hr Ceftriaxone Sodium 1 gm/ (Dextrose) 50 mls @ 100 mls/hr IVPB DAILY [facility]; Protocol Last Admin: 04/19/18 10:06 Dose: 100 mls/hr Famotidine/Sodium Chloride (Pepcid 20 Mg Premixed Ivpb -) 20 mg in 50 mls @ 100 mls/hr IVPB BID [facility] Last Admin: 04/19/18 10:06 Dose: 100 mls/hr Pantoprazole Sodium 40 mg/ (Sodium Chloride) 100 mls @ 200 mls/hr IVPB BID [facility] Last Admin: 04/19/18 10:06 Dose: 200 mls/hr Meclizine HCl (Antivert -) 25 mg PO Q6H PRN PRN Reason: VERTIGO Metoclopramide HCl (Reglan Injection -) 10 mg IVPB Q8H [facility] Last Admin: 04/19/18 10:06 Dose: 10 mg Morphine Sulfate (Morphine Sulfate) 4 mg IVPUSH Q6H PRN PRN Reason: PAIN LEVEL 7 - 10 Last Admin: 04/19/18 01:30 Dose: 4 mg Nadolol (Corgard -) 20 mg PO DAILY [facility] Last Admin: 04/19/18 10:06 Dose: 20 mg Ondansetron HCl (Zofran Injection) 4 mg IVPB Q4H PRN PRN Reason: NAUSEA AND/OR VOMITING - Objective Vital Signs: Vital Signs Temperature 98.9 F 04/19/18 09:56 Pulse Rate 87 04/19/18 09:56 Respiratory Rate 16 04/19/18 09:57 Blood Pressure 159/84 04/19/18 09:56 O2 Sat by Pulse Oximetry (%) 95 04/19/18 09:57 Constitutional: Yes: Well Nourished, No Distress Cardiovascular: Yes: Regular Rate and Rhythm Respiratory: Yes: Regular Gastrointestinal: Yes: Normal Bowel Sounds, Soft, Abdomen, Obese, Tenderness ( diffuse) Musculoskeletal: Yes: WNL Extremities: Yes: WNL Edema: No Peripheral Pulses WNL: Yes Neurological: Yes: Alert, Oriented Psychiatric: Yes: Alert, Oriented Labs: CBC, BMP 04/19/18 06:30 04/19/18 06:30 Problem List - Problems (1) Hepatitis C Assessment/Plan: -On Harvoni Code(s): B19.20 - UNSPECIFIED VIRAL HEPATITIS C WITHOUT HEPATIC COMA (2) Epigastric abdominal pain Assessment/Plan: -reglan+ pepcid+ pantaprazole -GI consult -CT abd- colitis -IV flagyl and rocephin -full liquid diet Code(s): R10.13 - EPIGASTRIC PAIN (3) Gastroenteritis and colitis, viral Assessment/Plan: -micro pending -cdiff negative Code(s): A08.4 - VIRAL INTESTINAL INFECTION, UNSPECIFIED (4) Cirrhosis of liver Code(s): K74.60 - UNSPECIFIED CIRRHOSIS OF LIVER Qualifiers: Hepatic cirrhosis type: unspecified biliary cirrhosis Qualified Code(s): K74.5 - Biliary cirrhosis, unspecified (5) Uncontrolled diabetes mellitus Assessment/Plan: -Seen by Endocrine -A1c at 10.0 -Novolog sliding scale -BGM AC HS -full liquid diabetic diet Code(s): E11.65 - TYPE 2 DIABETES MELLITUS WITH HYPERGLYCEMIA Assessment/Plan see problem list Self ambulatory
--- NOTE | 2018-04-19 13:42 | CONSULT ---
Consult Consult Specialty:: General Surgery Reason for Consultation:: Abdominal pain - History of Present Illness Chief Complaint: Abdominal pain and vomiting History of Present Illness: 63 yo female PMH Cirrhosis, Esophageal Varices, Hepatitis C (on Harvoni), HTN, IDDM, Anemia, Renal Calculi. Who presents to the ED with non bloody, non- bilious vomiting and watery non-bloody diarrhea x 3 days. Patient reports eating home cooked food then developed LLQ. Patient reports that her daughter also developed GI symptoms. Patient reports taking Imodium with some improvement. Patient reports dizziness similar to past episodes of Vertigo. Patient states" I fell down 3 steps today". She denies LOC or head injury. Patient denies fever, chills, SOB, CP, palpitations, constipation., melena, hematochezia, hematuria. We were asked to assess. - History Source History Provided By: Patient, Medical Record Limitations to Obtaining History: No Limitations - Past Medical History Cardio/Vascular: Yes: HTN Gastrointestinal: Yes: Esophageal Varices Hepatobiliary: Yes: Cirrhosis, Hepatitis C Renal/: Yes: Renal Calculi Endocrine: Yes: Diabetes Mellitus - Past Surgical History Past Surgical History: Yes: Cholecystectomy, Oopherectomy - Alcohol/Substance Use Hx Alcohol Use: No History of Substance Use: reports: None - Smoking History Smoking history: Never smoked Have you smoked in the past 12 months: No Aproximately how many cigarettes per day: 0 - Social History ADL: Independent History of Recent Travel: No Home Medications - Allergies Allergies/Adverse Reactions: Allergies Allergy/AdvReac Type Severity Reaction Status Date / Time No Known Allergies Allergy Verified 04/17/18 16:12 - Home Medications Home Medications: Ambulatory Orders Nadolol 20 mg PO DAILY 05/22/16 Enalapril Maleate 2.5 mg PO DAILY 12/17/17 Enalapril Maleate 5 mg PO DAILY 12/17/17 Esomeprazole Magnesium 40 mg PO DAILY 12/17/17 Ferrous Sulfate 325 mg PO DAILY 12/17/17 Insulin Lispro [Humalog Kwikpen] 30 unit SQ DAILY 12/17/17 Lactulose [Cephulac -] 30 ml PO DAILY 12/17/17 Family Disease History - Family Disease History Family Disease History: Diabetes: Father, Mother Review of Systems - Review of Systems Constitutional: denies: Chills, Fever Eyes: denies: Blind Spots, Recent Change in Vision HENT: denies: Difficult Swallowing, Throat Pain Neck: denies: Decreased ROM, Pain on Movement Cardiovascular: denies: Chest Pain, Palpitations Respiratory: denies: Cough, SOB Gastrointestinal: reports: Abdominal Pain, Diarrhea. denies: Constipation, Melena Genitourinary: denies: Burning, Discharge, Dysuria Breasts: reports: No Symptoms Reported. denies: Pain Musculoskeletal: denies: Extremity Pain, Joint Swelling, Muscle Pain Integumentary: denies: Eczema, Erythema, Pruritis Neurological: denies: Change in Speech, Syncope, Tremors Endocrine: denies: Unexplained Weight Gain, Unexplained Weight Loss Hematology/Lymphatic: denies: Easily Bruised, Excessive Bleeding Psychiatric: denies: Anxiety, Depression Physical Exam Vital Signs: Vital Signs Temperature 98.6 F 04/19/18 13:36 Pulse Rate 77 04/19/18 13:36 Respiratory Rate 18 04/19/18 13:36 Blood Pressure 150/68 04/19/18 13:36 O2 Sat by Pulse Oximetry (%) 95 04/19/18 09:57 Constitutional: Yes: Well Nourished, No Distress, Calm, Obese Eyes: Yes: Conjunctiva Clear, EOM Intact HENT: Yes: Atraumatic, Normocephalic Neck: Yes: Supple, Trachea Midline Cardiovascular: Yes: Regular Rate and Rhythm, S1, S2 Respiratory: Yes: Regular, CTA Bilaterally Gastrointestinal: Yes: Normal Bowel Sounds, Soft, Abdomen, Obese, Tenderness ( bilateral lower quadrants mildly tender) ...Rectal Exam: Yes: Sphincter Tone Normal. No: Hemorrhoids/Internal, Mass Renal/: No: CVA Tenderness - Left, CVA Tenderness - Right Breast(s): No: Discharge from Nipple, Nipple Inversion Musculoskeletal: No: Muscle Pain, Muscle Weakness Extremities: No: Cool, Cyanosis Edema: No Peripheral Pulses WNL: Yes Integumentary: No: Jaundice, Petechiae, Pressure Ulcer Neurological: Yes: Alert, Oriented Psychiatric: Yes: Alert, Oriented Labs: CBC, BMP 04/19/18 06:30 04/19/18 06:30 Imaging - Results Cat Scan: Report Reviewed, Image Reviewed Problem List - Problems (1) Abdominal pain Assessment/Plan: 63 yo MMP cirrhosis secondary to hepatitis, presenting with lower abdominal pain diarrhea. clinically not peritonitis. No acute surgical intervention is indicated. NPO and IVF hydration IV antibiotics GI evaluation for colonoscopy will follow peripherally Thank you for the opportunity to participate in the care of this patient. Code(s): R10.9 - UNSPECIFIED ABDOMINAL PAIN Qualifiers: Abdominal location: generalized Qualified Code(s): R10.84 - Generalized abdominal pain (2) Gastroenteritis and colitis, viral Code(s): A08.4 - VIRAL INTESTINAL INFECTION, UNSPECIFIED (3) Hepatitis C Code(s): B19.20 - UNSPECIFIED VIRAL HEPATITIS C WITHOUT HEPATIC COMA (4) History of esophageal varices Code(s): Z87.19 - PERSONAL HISTORY OF OTHER DISEASES OF THE DIGESTIVE SYSTEM (5) Cirrhosis of liver Code(s): K74.60 - UNSPECIFIED CIRRHOSIS OF LIVER Qualifiers: Hepatic cirrhosis type: unspecified biliary cirrhosis Qualified Code(s): K74.5 - Biliary cirrhosis, unspecified (6) Hepatic encephalopathy Code(s): K72.90 - HEPATIC FAILURE, UNSPECIFIED WITHOUT COMA
--- NOTE | 2018-04-19 14:00 | PN ---
Progress Note (short form) - Note Progress Note: clinically improved no vomiting less diarrhea- still watery but less less abdominal pain Vital Signs Period Temp Pulse Resp BP Sys/Malik Pulse Ox Last 24 Hr 98.4 F-99.5 F 70-97 16-20 138-166/67-86 95-96 cor-rrr lungs clear abd soft,mild midepigastric tenderness to palpation ext no edema CBC, BMP 04/19/18 06:30 04/19/18 06:30 Microbiology 04/19/18 11:00 Stool Norovirus GI - Preliminary 04/19/18 11:00 Stool Norovirus GII - Preliminary 04/18/18 03:50 Stool Clostridium difficile Antigen (KURT) - Final 04/18/18 03:50 Stool Clostridium difficile Toxin Assay - Final a/p suspect viral gastroenteritis, ct scan with ?colitis would screen for norovirus cdiff stool culture and wbc blood cultures rocephin/flagyl to continue f/u cultures in am cirrhosis history hep c prolionged qtc on ekg Problem List - Problems (1) Gastroenteritis and colitis, viral Code(s): A08.4 - VIRAL INTESTINAL INFECTION, UNSPECIFIED (2) Cirrhosis of liver Code(s): K74.60 - UNSPECIFIED CIRRHOSIS OF LIVER Qualifiers: Hepatic cirrhosis type: unspecified biliary cirrhosis Qualified Code(s): K74.5 - Biliary cirrhosis, unspecified
[2018-04-19] MEDS ORDERED: DIPHENOXYLATE 2.5/ATROPINE.025 1 COMBO TABLET PO PRN (14:20)
--- NOTE | 2018-04-19 14:24 | PN ---
GI Progress Note Subjective: diarrhea slightly improved, still with abdominal pain, no nausea and no vomiting - Objective Vital Signs: Vital Signs Temperature 98.6 F 04/19/18 13:36 Pulse Rate 77 04/19/18 13:36 Respiratory Rate 18 04/19/18 13:36 Blood Pressure 150/68 04/19/18 13:36 O2 Sat by Pulse Oximetry (%) 95 04/19/18 09:57 Constitutional: Obese Eyes: Yes: Conjunctiva Clear HENT: Yes: Atraumatic, Tonsillar Exudate Cardiovascular: Yes: Regular Rate and Rhythm Respiratory: Yes: CTA Bilaterally ...Palpate: Yes: Soft, Tenderness (--mild). No: Firm/Rigid, Hepatomegaly, Mass , Pulsatile Mass, Splenomegaly, Tenderness, Epigastium Labs: CBC, BMP 04/19/18 06:30 04/19/18 06:30 Problem List - Problems (1) Infectious diarrhea Assessment/Plan: R> add lomotil contiue IV hydration Code(s): A09 - INFECTIOUS GASTROENTERITIS AND COLITIS, UNSPECIFIED (2) Epigastric abdominal pain Code(s): R10.13 - EPIGASTRIC PAIN (3) History of esophageal varices Code(s): Z87.19 - PERSONAL HISTORY OF OTHER DISEASES OF THE DIGESTIVE SYSTEM
[2018-04-20] MEDS ORDERED: PT OWN MED DRAWER 7, Y5N ONE (02:24)
[2018-04-20] MEDS: METOCLOPRAMIDE HCL INJECTION 10 MG/2 ML VIAL IVPB SCH ×3 (02:30→17:32)
[2018-04-20] MEDS: morphine SULFATE 4 MG/ML VIAL IVPUSH PRN ×2 (02:43→13:32)
[2018-04-20] MEDS ORDERED: IBUPROFEN 600 MG TABLET (FP) PO ONE (04:39)
[2018-04-20] MEDS ORDERED: SODIUM CHLORIDE 1,000 ML IV SCH (09:13)
[2018-04-20] MEDS ORDERED: DEXTROSE 5%-WATER - 50 ML IVPB ONE (09:38)
[2018-04-20] MEDS ORDERED: cefTRIAXone SODIUM 1 GM VIAL ONE (09:38)
[2018-04-20] MEDS ORDERED: PANTOPRAZOLE SODIUM 40 MG VIAL ONE ×2 (09:38→21:06)
[2018-04-20] MEDS ORDERED: SODIUM CHLORIDE 100 ML IVPB ONE ×2 (09:39→21:07)
[2018-04-20] MEDS: CEFTRIAXONE 1 GM in DEXTROSE 5%-WATER - 50 ML IVPB SCH (10:05)
[2018-04-20] MEDS: NADOLOL 20 MG TABLET (FP) PO SCH (10:05)
[2018-04-20] MEDS: PANTOPRAZOLE SODIUM 40 MG in SODIUM CHLORIDE 100 ML IVPB SCH ×2 (10:05→21:32)
[2018-04-20] MEDS: FAMOTIDINE 20 MG/50 ML IVPB 20 MG/50 ML MG IVPB SCH ×2 (10:05→22:40)
[2018-04-20] MEDS: ENALAPRIL MALEATE 5 MG TABLET (FP) PO SCH (11:23)
--- NOTE | 2018-04-20 12:45 | CONSULT ---
Consult Consult Specialty:: Endocrinology Referred by:: Dr Rojo Reason for Consultation:: Uncontrolled blood sugar - History of Present Illness Chief Complaint: Diarrhoea, nausea History of Present Illness: This is a 63 y/o woman with h/o Cirrhosis, Esophageal Varices, Hepatitis C (on Harvoni), HTN, T2DM for 10 years, on Insulin for about 8, Anemia, Renal Calculi who presented to the ED with non bloody, non-bilious vomiting and watery non-bloody diarrhea x 3 days. Patient reported eating home cooked food then developing LLQ. Patient reported that her daughter also developed GI symptoms. Patient reported taking Imodium with some improvement. Pt treated with IV hydration. Pt referred for management of DM. FS at home 250 to 400s. No hypos recently. Has nocturia 4-5x. Has blurred vision off and on. Had eye exam about 6 months ago but didn't have dilated eye exam. - History Source History Provided By: Patient, Medical Record - Past Medical History Cardio/Vascular: Yes: HTN Gastrointestinal: Yes: Esophageal Varices Hepatobiliary: Yes: Cirrhosis, Hepatitis C Renal/: Yes: Renal Calculi Endocrine: Yes: Diabetes Mellitus - Past Surgical History Past Surgical History: Yes: Cholecystectomy, Oopherectomy - Alcohol/Substance Use Hx Alcohol Use: No History of Substance Use: reports: None - Smoking History Smoking history: Never smoked Have you smoked in the past 12 months: No Aproximately how many cigarettes per day: 0 - Social History ADL: Independent History of Recent Travel: No Home Medications - Allergies Allergies/Adverse Reactions: Allergies Allergy/AdvReac Type Severity Reaction Status Date / Time No Known Allergies Allergy Verified 04/17/18 16:12 - Home Medications Home Medications: Ambulatory Orders Nadolol 20 mg PO DAILY 05/22/16 Enalapril Maleate 2.5 mg PO DAILY 12/17/17 Enalapril Maleate 5 mg PO DAILY 12/17/17 Esomeprazole Magnesium 40 mg PO DAILY 12/17/17 Ferrous Sulfate 325 mg PO DAILY 12/17/17 Insulin Lispro [Humalog Kwikpen] 30 unit SQ DAILY 12/17/17 Lactulose [Cephulac -] 30 ml PO DAILY 12/17/17 Family Disease History - Family Disease History Family Disease History: Diabetes: Father, Mother, Brother Review of Systems - Review of Systems Constitutional: reports: Malaise Eyes: reports: No Symptoms HENT: reports: No Symptoms Neck: reports: No Symptoms Cardiovascular: reports: No Symptoms Respiratory: reports: No Symptoms Gastrointestinal: reports: Diarrhea Genitourinary: reports: Other (NOcturia) Musculoskeletal: reports: No Symptoms Neurological: reports: No Symptoms Endocrine: reports: No Symptoms Hematology/Lymphatic: reports: No Symptoms Physical Exam Vital Signs: Vital Signs Temperature 98.2 F 04/20/18 08:59 Pulse Rate 78 04/20/18 08:59 Respiratory Rate 18 04/20/18 08:59 Blood Pressure 186/95 H 04/20/18 08:59 O2 Sat by Pulse Oximetry (%) 96 04/20/18 08:59 Constitutional: Yes: No Distress, Calm Eyes: Yes: Conjunctiva Clear, EOM Intact HENT: Yes: Atraumatic, Normocephalic Neck: Yes: Supple, Trachea Midline Cardiovascular: Yes: Regular Rate and Rhythm Respiratory: Yes: Regular, CTA Bilaterally Gastrointestinal: Yes: Normal Bowel Sounds Musculoskeletal: Yes: WNL Extremities: Yes: WNL Edema: No Neurological: Yes: Alert, Oriented Labs: CBC, BMP 04/19/18 06:30 04/19/18 06:30 Assessment/Plan T2DM uncontrolled A1c 10 Cirhosis of liver Esophageal Varices HTN Diarrhoea IV hydration Abx BGM QACHS Novolog SS coverage Nutrition consult Will f/u
[2018-04-20] MEDS ORDERED: INSULIN SLIDING SCALE (NOVOLOG) 1 VIAL SQ SCH (13:00)
--- NOTE | 2018-04-20 14:35 | PN ---
Progress Note, Physician Chief Complaint: LGIB History of Present Illness: 63 yo female PMH Cirrhosis, Esophageal Varices, Hepatitis C (on Harvoni), HTN, IDDM, Anemia, Renal Calculi. Who presents to the ED with non bloody, non- bilious vomiting and watery non-bloody diarrhea x 3 days. BPR is improving gradually - Current Medication List Current Medications: Active Medications Diphenoxylate HCl/Atropine (Lomotil -) 1 combo PO Q8H PRN PRN Reason: DIARRHEA Enalapril Maleate (Vasotec -) 5 mg PO DAILY [facility] Last Admin: 04/20/18 11:23 Dose: 5 mg Metronidazole (Flagyl 250mg Premixed Ivpb -) 250 mg in 50 mls @ 50 mls/hr IVPB Q8H-IV [facility] Last Admin: 04/20/18 10:05 Dose: 50 mls/hr Ceftriaxone Sodium 1 gm/ (Dextrose) 50 mls @ 100 mls/hr IVPB DAILY [facility]; Protocol Last Admin: 04/20/18 10:05 Dose: 100 mls/hr Famotidine/Sodium Chloride (Pepcid 20 Mg Premixed Ivpb -) 20 mg in 50 mls @ 100 mls/hr IVPB BID [facility] Last Admin: 04/20/18 10:05 Dose: 100 mls/hr Pantoprazole Sodium 40 mg/ (Sodium Chloride) 100 mls @ 200 mls/hr IVPB BID [facility] Last Admin: 04/20/18 10:05 Dose: 200 mls/hr Sodium Chloride (Normal Saline -) 1,000 mls @ 50 mls/hr IV ASDIR [facility] Last Admin: 04/20/18 11:23 Dose: 50 mls/hr Insulin Aspart (Novolog Vial Sliding Scale -) 1 vial SQ Q6HPO [facility]; Protocol Last Admin: 04/20/18 13:52 Dose: Not Given Meclizine HCl (Antivert -) 25 mg PO Q6H PRN PRN Reason: VERTIGO Metoclopramide HCl (Reglan Injection -) 10 mg IVPB Q8H [facility] Last Admin: 04/20/18 10:05 Dose: 10 mg Morphine Sulfate (Morphine Sulfate) 4 mg IVPUSH Q6H PRN PRN Reason: PAIN LEVEL 7 - 10 Last Admin: 04/20/18 13:32 Dose: 4 mg Nadolol (Corgard -) 20 mg PO DAILY [facility] Last Admin: 04/20/18 10:05 Dose: 20 mg Ondansetron HCl (Zofran Injection) 4 mg IVPB Q4H PRN PRN Reason: NAUSEA AND/OR VOMITING - Objective Vital Signs: Vital Signs Temperature 98.2 F 04/20/18 08:59 Pulse Rate 78 04/20/18 08:59 Respiratory Rate 18 04/20/18 08:59 Blood Pressure 186/95 H 04/20/18 08:59 O2 Sat by Pulse Oximetry (%) 96 04/20/18 08:59 Constitutional: Yes: Well Nourished, No Distress, Calm, Obese Eyes: Yes: Conjunctiva Clear, EOM Intact HENT: Yes: Atraumatic, Normocephalic Neck: Yes: Supple, Trachea Midline Cardiovascular: Yes: Regular Rate and Rhythm, S1, S2 Respiratory: Yes: Regular, CTA Bilaterally Gastrointestinal: Yes: Normal Bowel Sounds, Soft. No: Tenderness ...Rectal Exam: Yes: Deferred Genitourinary: No: CVA Tenderness - Left, CVA Tenderness - Right Musculoskeletal: No: Muscle Pain, Muscle Weakness Extremities: No: Cool, Cyanosis Edema: No Peripheral Pulses WNL: Yes Peripheral Pulses: Left Radial: 2+, Right Radial: 2+, Left Doralis Pedis: 2+, Right Dorsalis Pedis: 2+, Left Femoral: 2+, Right Femoral: 2+ Neurological: Yes: Alert, Oriented Psychiatric: Yes: Alert, Oriented Labs: CBC, BMP 04/19/18 06:30 04/19/18 06:30 Problem List - Problems (1) Abdominal pain Assessment/Plan: 63 yo MMP cirrhosis secondary to hepatitis, presenting with lower abdominal pain diarrhea. clinically not peritonitis. No acute surgical intervention is indicated. Resolving with medical therapy NPO and IVF hydration IV antibiotics GI evaluation for colonoscopy Recall as needed Code(s): R10.9 - UNSPECIFIED ABDOMINAL PAIN Qualifiers: Abdominal location: generalized Qualified Code(s): R10.84 - Generalized abdominal pain (2) Gastroenteritis and colitis, viral Code(s): A08.4 - VIRAL INTESTINAL INFECTION, UNSPECIFIED (3) Hepatitis C Code(s): B19.20 - UNSPECIFIED VIRAL HEPATITIS C WITHOUT HEPATIC COMA (4) History of esophageal varices Code(s): Z87.19 - PERSONAL HISTORY OF OTHER DISEASES OF THE DIGESTIVE SYSTEM (5) Cirrhosis of liver Code(s): K74.60 - UNSPECIFIED CIRRHOSIS OF LIVER Qualifiers: Hepatic cirrhosis type: unspecified biliary cirrhosis Qualified Code(s): K74.5 - Biliary cirrhosis, unspecified (6) Hepatic encephalopathy Code(s): K72.90 - HEPATIC FAILURE, UNSPECIFIED WITHOUT COMA
--- NOTE | 2018-04-20 17:31 | PN ---
Progress Note, Physician Chief Complaint: Vomiting, Diarrhea, Dizziness History of Present Illness: NAD feels better diarrhea improved-less frequent more formed On IV abx Seen by ID, GI and general sx - Current Medication List Current Medications: Active Medications Diphenoxylate HCl/Atropine (Lomotil -) 1 combo PO Q8H PRN PRN Reason: DIARRHEA Enalapril Maleate (Vasotec -) 5 mg PO DAILY [facility] Last Admin: 04/20/18 11:23 Dose: 5 mg Metronidazole (Flagyl 250mg Premixed Ivpb -) 250 mg in 50 mls @ 50 mls/hr IVPB Q8H-IV [facility] Last Admin: 04/20/18 10:05 Dose: 50 mls/hr Ceftriaxone Sodium 1 gm/ (Dextrose) 50 mls @ 100 mls/hr IVPB DAILY [facility]; Protocol Last Admin: 04/20/18 10:05 Dose: 100 mls/hr Famotidine/Sodium Chloride (Pepcid 20 Mg Premixed Ivpb -) 20 mg in 50 mls @ 100 mls/hr IVPB BID [facility] Last Admin: 04/20/18 10:05 Dose: 100 mls/hr Pantoprazole Sodium 40 mg/ (Sodium Chloride) 100 mls @ 200 mls/hr IVPB BID [facility] Last Admin: 04/20/18 10:05 Dose: 200 mls/hr Insulin Aspart (Novolog Vial Sliding Scale -) 1 vial SQ ACHS [facility]; Protocol Meclizine HCl (Antivert -) 25 mg PO Q6H PRN PRN Reason: VERTIGO Metoclopramide HCl (Reglan Injection -) 10 mg IVPB Q8H [facility] Last Admin: 04/20/18 10:05 Dose: 10 mg Nadolol (Corgard -) 20 mg PO DAILY [facility] Last Admin: 04/20/18 10:05 Dose: 20 mg Ondansetron HCl (Zofran Injection) 4 mg IVPB Q4H PRN PRN Reason: NAUSEA AND/OR VOMITING Oxycodone HCl (Roxicodone -) 5 mg PO Q6H PRN PRN Reason: PAIN LEVEL 6-10 - Objective Vital Signs: Vital Signs Temperature 98.1 F 04/20/18 14:00 Pulse Rate 78 04/20/18 14:00 Respiratory Rate 18 04/20/18 08:59 Blood Pressure 182/89 H 04/20/18 14:00 O2 Sat by Pulse Oximetry (%) 96 04/20/18 08:59 Constitutional: Yes: Well Nourished, No Distress, Calm Cardiovascular: Yes: Regular Rate and Rhythm Respiratory: Yes: Regular Gastrointestinal: Yes: Normal Bowel Sounds, Soft, Tenderness (LLQ) Genitourinary: Yes: WNL Musculoskeletal: Yes: WNL Extremities: Yes: WNL Edema: No Peripheral Pulses WNL: Yes Neurological: Yes: Alert, Oriented Psychiatric: Yes: Alert, Oriented Labs: CBC, BMP 04/19/18 06:30 04/19/18 06:30 Problem List - Problems (1) Hepatitis C Assessment/Plan: -On Harvoni Code(s): B19.20 - UNSPECIFIED VIRAL HEPATITIS C WITHOUT HEPATIC COMA (2) Epigastric abdominal pain Assessment/Plan: -reglan+ pepcid+ pantaprazole -GI consult -CT abd- colitis -IV flagyl and rocephin -full liquid diet Code(s): R10.13 - EPIGASTRIC PAIN (3) Gastroenteritis and colitis, viral Assessment/Plan: -micro pending -cdiff negative Code(s): A08.4 - VIRAL INTESTINAL INFECTION, UNSPECIFIED (4) Cirrhosis of liver Code(s): K74.60 - UNSPECIFIED CIRRHOSIS OF LIVER Qualifiers: Hepatic cirrhosis type: unspecified biliary cirrhosis Qualified Code(s): K74.5 - Biliary cirrhosis, unspecified (5) Uncontrolled diabetes mellitus Assessment/Plan: -Seen by Endocrine -A1c at 10.0 -Novolog sliding scale -BGM AC HS -full liquid diabetic diet Code(s): E11.65 - TYPE 2 DIABETES MELLITUS WITH HYPERGLYCEMIA Assessment/Plan see problem list Self ambulatory
[2018-04-20] MEDS: INSULIN SLIDING SCALE (NOVOLOG) 1 VIAL SQ SCH (21:28)
[2018-04-21] MEDS ORDERED: PT OWN MED DRAWER 7, Y5N ONE ×5 (01:16→21:10)
[2018-04-21] MEDS: oxyCODONE HCL 5 MG TABLET PO PRN ×2 (01:18→12:29)
[2018-04-21] MEDS: METOCLOPRAMIDE HCL INJECTION 10 MG/2 ML VIAL IVPB SCH ×3 (02:43→17:43)
[2018-04-21] MEDS: INSULIN SLIDING SCALE (NOVOLOG) 1 VIAL SQ SCH ×4 (06:17→21:36)
[2018-04-21] MEDS ORDERED: DEXTROSE 5%-WATER - 50 ML IVPB ONE (09:28)
[2018-04-21] MEDS ORDERED: cefTRIAXone SODIUM 1 GM VIAL ONE (09:28)
[2018-04-21] MEDS ORDERED: SODIUM CHLORIDE 100 ML IVPB ONE ×2 (09:29→21:20)
[2018-04-21] MEDS ORDERED: PANTOPRAZOLE SODIUM 40 MG VIAL ONE ×2 (09:29→21:19)
[2018-04-21] MEDS: PANTOPRAZOLE SODIUM 40 MG in SODIUM CHLORIDE 100 ML IVPB SCH ×2 (09:47→21:37)
[2018-04-21] MEDS: CEFTRIAXONE 1 GM in DEXTROSE 5%-WATER - 50 ML IVPB SCH (09:47)
[2018-04-21] MEDS: ENALAPRIL MALEATE 5 MG TABLET (FP) PO SCH (09:48)
[2018-04-21] MEDS: FAMOTIDINE 20 MG/50 ML IVPB 20 MG/50 ML MG IVPB SCH ×2 (09:48→21:37)
[2018-04-21] MEDS: NADOLOL 20 MG TABLET (FP) PO SCH (09:48)
--- NOTE | 2018-04-21 12:47 | PN ---
Progress Note, Physician Chief Complaint: AWAKE ALERT FEELING BETTER - Current Medication List Current Medications: Active Medications Diphenoxylate HCl/Atropine (Lomotil -) 1 combo PO Q8H PRN PRN Reason: DIARRHEA Enalapril Maleate (Vasotec -) 5 mg PO DAILY [facility] Last Admin: 04/21/18 09:48 Dose: 5 mg Metronidazole (Flagyl 250mg Premixed Ivpb -) 250 mg in 50 mls @ 50 mls/hr IVPB Q8H-IV [facility] Last Admin: 04/21/18 09:45 Dose: 50 mls/hr Ceftriaxone Sodium 1 gm/ (Dextrose) 50 mls @ 100 mls/hr IVPB DAILY [facility]; Protocol Last Admin: 04/21/18 09:47 Dose: 100 mls/hr Famotidine/Sodium Chloride (Pepcid 20 Mg Premixed Ivpb -) 20 mg in 50 mls @ 100 mls/hr IVPB BID [facility] Last Admin: 04/21/18 09:48 Dose: 100 mls/hr Pantoprazole Sodium 40 mg/ (Sodium Chloride) 100 mls @ 200 mls/hr IVPB BID [facility] Last Admin: 04/21/18 09:47 Dose: 200 mls/hr Insulin Aspart (Novolog Vial Sliding Scale -) 1 vial SQ ACHS [facility]; Protocol Last Admin: 04/21/18 12:29 Dose: Not Given Meclizine HCl (Antivert -) 25 mg PO Q6H PRN PRN Reason: VERTIGO Metoclopramide HCl (Reglan Injection -) 10 mg IVPB Q8H [facility] Last Admin: 04/21/18 09:47 Dose: 10 mg Nadolol (Corgard -) 20 mg PO DAILY [facility] Last Admin: 04/21/18 09:48 Dose: 20 mg Ondansetron HCl (Zofran Injection) 4 mg IVPB Q4H PRN PRN Reason: NAUSEA AND/OR VOMITING Oxycodone HCl (Roxicodone -) 5 mg PO Q6H PRN PRN Reason: PAIN LEVEL 6-10 Last Admin: 04/21/18 12:29 Dose: 5 mg - Objective Vital Signs: Vital Signs Temperature 98.1 F 04/21/18 05:00 Pulse Rate 75 04/21/18 05:00 Respiratory Rate 18 04/21/18 05:00 Blood Pressure 159/76 04/21/18 05:00 O2 Sat by Pulse Oximetry (%) 95 04/20/18 21:00 Constitutional: Yes: Mild Distress Eyes: Yes: WNL HENT: Yes: WNL Neck: Yes: WNL Cardiovascular: Yes: WNL Respiratory: Yes: WNL Gastrointestinal: Yes: Tenderness Genitourinary: Yes: WNL Musculoskeletal: Yes: WNL Extremities: Yes: WNL Edema: No Peripheral Pulses WNL: Yes Integumentary: Yes: WNL Wound/Incision: Yes: Clean/Dry Neurological: Yes: WNL ...Motor Strength: WNL Psychiatric: Yes: WNL Labs: CBC, BMP 04/19/18 06:30 04/19/18 06:30 Problem List - Problems (1) Gastroenteritis and colitis, viral Code(s): A08.4 - VIRAL INTESTINAL INFECTION, UNSPECIFIED (2) Thrombocytopenia Code(s): D69.6 - THROMBOCYTOPENIA, UNSPECIFIED (3) Transaminitis Code(s): R74.0 - NONSPEC ELEV OF LEVELS OF TRANSAMNS & LACTIC ACID DEHYDRGNSE (4) Abdominal pain Code(s): R10.9 - UNSPECIFIED ABDOMINAL PAIN Qualifiers: Abdominal location: generalized Qualified Code(s): R10.84 - Generalized abdominal pain (5) Cirrhosis of liver Code(s): K74.60 - UNSPECIFIED CIRRHOSIS OF LIVER Qualifiers: Hepatic cirrhosis type: unspecified biliary cirrhosis Qualified Code(s): K74.5 - Biliary cirrhosis, unspecified (6) Hepatic encephalopathy Code(s): K72.90 - HEPATIC FAILURE, UNSPECIFIED WITHOUT COMA Assessment/Plan IV ABX IVF NPO UNLESS GI CLEARS COLONOSCOPY SCHEDULED BY GI HOWEVER UNSURE IF TODAY. IF PATIENT DOES NOT HAVE COLONOSCOPY TODAY CAN START LIQUID DIET.
--- NOTE | 2018-04-21 13:55 | PN ---
GI Progress Note - Objective Vital Signs: Vital Signs Temperature 98 F 04/21/18 09:00 Pulse Rate 76 04/21/18 09:00 Respiratory Rate 18 04/21/18 09:00 Blood Pressure 180/80 H 04/21/18 09:00 O2 Sat by Pulse Oximetry (%) 95 04/21/18 09:00 Labs: CBC, BMP 04/19/18 06:30 04/19/18 06:30 Problem List - Problems (1) Infectious diarrhea Code(s): A09 - INFECTIOUS GASTROENTERITIS AND COLITIS, UNSPECIFIED (2) Epigastric abdominal pain Code(s): R10.13 - EPIGASTRIC PAIN (3) History of esophageal varices Code(s): Z87.19 - PERSONAL HISTORY OF OTHER DISEASES OF THE DIGESTIVE SYSTEM
--- NOTE | 2018-04-21 15:25 | PN ---
Progress Note (short form) - Note Progress Note: Feels better No complaints Blood sugar stable Vital Signs Period Temp Pulse Resp BP Sys/Malik Pulse Ox Last 24 Hr 97.7 F-98.1 F 75-82 17-18 159-190/76-88 95-95 PE: AOx3 Neck: Supple, No JVD HEENT: EOMI Lungs: CTA CVS: S1S2 Abd: Benign Ext: No edema Neuro: No focal deficit CMP Sodium 137 mmol/L (136-145) 04/19/18 06:30 Potassium 3.5 mmol/L (3.5-5.1) 04/19/18 06:30 Chloride 103 mmol/L (98-107) 04/19/18 06:30 Carbon Dioxide 27 mmol/L (21-32) 04/19/18 06:30 Anion Gap 7 MMOL/L (8-16) L 04/19/18 06:30 BUN 6 mg/dL (7-18) L 04/19/18 06:30 Creatinine 0.5 mg/dL (0.55-1.3) L 04/19/18 06:30 Creat Clearance w eGFR > 60 (>60) 04/19/18 06:30 POC Glucometer 109 UNITS (80-120) 04/21/18 12:23 Random Glucose 127 mg/dL (74-106) H 04/19/18 06:30 Hemoglobin A1c % 10.0 % (4.2-6.3) H 04/19/18 06:30 Calcium 7.1 mg/dL (8.5-10.1) L 04/19/18 06:30 Phosphorus 2.7 mg/dL (2.5-4.9) 04/19/18 06:30 Magnesium 1.8 mg/dL (1.8-2.4) 04/19/18 06:30 Total Bilirubin 1.3 mg/dL (0.2-1) H 04/19/18 06:30 AST 66 U/L (15-37) H 04/19/18 06:30 ALT 73 U/L (13-61) H 04/19/18 06:30 Alkaline Phosphatase 149 U/L (45-117) H 04/19/18 06:30 C-Reactive Protein 1.3 MG/DL (0.00-0.3) H 04/18/18 09:00 Total Protein 5.6 g/dl (6.4-8.2) L 04/19/18 06:30 Albumin 2.6 g/dl (3.4-5.0) L 04/19/18 06:30 Lipase 368 U/L (73-393) 04/17/18 17:45 Current Medications Generic Name Dose Route Start Last Admin Trade Name Freq PRN Reason Stop Dose Admin Diphenoxylate HCl/Atropine 1 combo 04/19/18 14:20 Lomotil - PO Q8H PRN DIARRHEA Enalapril Maleate 5 mg 04/20/18 09:13 04/21/18 09:48 Vasotec - PO 5 mg DAILY NANCY Administration Metronidazole 250 mg in 50 mls @ 50 mls/hr 04/18/18 10:00 04/21/18 09:45 Flagyl 250mg Premixed Ivpb - IVPB 50 mls/hr Q8H-IV NANCY Administration Ceftriaxone Sodium 1 gm/ 50 mls @ 100 mls/hr 04/18/18 10:00 04/21/18 09:47 Dextrose IVPB 100 mls/hr DAILY NANCY Administration Protocol Famotidine/Sodium Chloride 20 mg in 50 mls @ 100 mls/hr 04/18/18 10:00 09:48 Pepcid 20 Mg Premixed Ivpb - IVPB 100 mls/hr BID NANCY Administration Pantoprazole Sodium 40 mg/ 100 mls @ 200 mls/hr 04/18/18 22:00 04/21/18 09:47 Sodium Chloride IVPB 200 mls/hr BID NANCY Administration Insulin Aspart 1 vial 04/20/18 22:00 04/21/18 12:29 Novolog Vial Sliding Scale - SQ Not Given ACHS NANCY Protocol Meclizine HCl 25 mg 04/18/18 08:22 Antivert - PO Q6H PRN VERTIGO Metoclopramide HCl 10 mg 04/18/18 18:30 04/21/18 09:47 Reglan Injection - IVPB 10 mg Q8H NANCY Administration Nadolol 20 mg 04/18/18 10:00 04/21/18 09:48 Corgard - PO 20 mg DAILY NANCY Administration Ondansetron HCl 4 mg 04/19/18 08:00 Zofran Injection IVPB Q4H PRN NAUSEA AND/OR VOMITING Oxycodone HCl 5 mg 04/20/18 17:27 04/21/18 12:29 Roxicodone - PO 5 mg Q6H PRN Administration PAIN LEVEL 6-10 AP: T2DM uncontrolled A1c 10: Blood currently stable while pt is NPO Cirhosis of liver Esophageal Varices HTN Diarrhoea Was on Basaglar 20 daily and Humalog 20 BID at home. Has Omnipod which she hasn' t started using yet. IV hydration Abx BGM QACHS Novolog SS coverage Nutrition consult Will f/u
--- NOTE | 2018-04-21 17:27 | PN ---
Progress Note, Physician History of Present Illness: Awake, alert in bed Feels better Abdo pain better Reports normal BM today No fever/ chills Leukopenia/ thrombocytopenia improved - Current Medication List Current Medications: Active Medications Diphenoxylate HCl/Atropine (Lomotil -) 1 combo PO Q8H PRN PRN Reason: DIARRHEA Enalapril Maleate (Vasotec -) 5 mg PO DAILY [facility] Last Admin: 04/21/18 09:48 Dose: 5 mg Metronidazole (Flagyl 250mg Premixed Ivpb -) 250 mg in 50 mls @ 50 mls/hr IVPB Q8H-IV NANCY Last Admin: 04/21/18 17:04 Dose: 50 mls/hr Ceftriaxone Sodium 1 gm/ (Dextrose) 50 mls @ 100 mls/hr IVPB DAILY [facility]; Protocol Last Admin: 04/21/18 09:47 Dose: 100 mls/hr Famotidine/Sodium Chloride (Pepcid 20 Mg Premixed Ivpb -) 20 mg in 50 mls @ 100 mls/hr IVPB BID [facility] Last Admin: 04/21/18 09:48 Dose: 100 mls/hr Pantoprazole Sodium 40 mg/ (Sodium Chloride) 100 mls @ 200 mls/hr IVPB BID [facility] Last Admin: 04/21/18 09:47 Dose: 200 mls/hr Insulin Aspart (Novolog Vial Sliding Scale -) 1 vial SQ ACHS [facility]; Protocol Last Admin: 04/21/18 16:33 Dose: Not Given Meclizine HCl (Antivert -) 25 mg PO Q6H PRN PRN Reason: VERTIGO Metoclopramide HCl (Reglan Injection -) 10 mg IVPB Q8H [facility] Last Admin: 04/21/18 09:47 Dose: 10 mg Nadolol (Corgard -) 20 mg PO DAILY [facility] Last Admin: 04/21/18 09:48 Dose: 20 mg Ondansetron HCl (Zofran Injection) 4 mg IVPB Q4H PRN PRN Reason: NAUSEA AND/OR VOMITING Oxycodone HCl (Roxicodone -) 5 mg PO Q6H PRN PRN Reason: PAIN LEVEL 6-10 Last Admin: 04/21/18 12:29 Dose: 5 mg - Objective Vital Signs: Vital Signs Temperature 98.1 F 04/21/18 14:00 Pulse Rate 78 04/21/18 14:00 Respiratory Rate 18 04/21/18 09:00 Blood Pressure 190/87 H 04/21/18 14:00 O2 Sat by Pulse Oximetry (%) 95 04/21/18 09:00 Constitutional: Yes: No Distress Cardiovascular: Yes: Regular Rate and Rhythm, S1, S2 Respiratory: Yes: CTA Bilaterally Gastrointestinal: Yes: Normal Bowel Sounds, Soft Labs: CBC, BMP 04/19/18 06:30 04/19/18 06:30 Assessment/Plan Acute gastroenteritis- improved Cirrhosis Await stool studies Continue ceftriaxone/ flagyl Advance diet
[2018-04-21] MEDS ORDERED: hydrALAZINE HCL 25 MG TABLET (FP) PO ONE (18:00)
[2018-04-22] MEDS: METOCLOPRAMIDE HCL INJECTION 10 MG/2 ML VIAL IVPB SCH ×3 (03:03→17:29)
[2018-04-22] MEDS: oxyCODONE HCL 5 MG TABLET PO PRN (04:43)
[2018-04-22] MEDS: INSULIN SLIDING SCALE (NOVOLOG) 1 VIAL SQ SCH ×3 (06:09→16:47)
[2018-04-22] MEDS ORDERED: cefTRIAXone SODIUM 1 GM VIAL ONE (08:31)
[2018-04-22] MEDS ORDERED: DEXTROSE 5%-WATER - 50 ML IVPB ONE (08:31)
[2018-04-22] MEDS ORDERED: SODIUM CHLORIDE 100 ML IVPB ONE ×2 (08:32→21:08)
[2018-04-22] MEDS ORDERED: PANTOPRAZOLE SODIUM 40 MG VIAL ONE ×2 (08:32→21:08)
[2018-04-22] MEDS ORDERED: PT OWN MED DRAWER 7, Y5N ONE ×2 (08:33→16:49)
[2018-04-22] MEDS: NADOLOL 20 MG TABLET (FP) PO SCH (09:00)
[2018-04-22] MEDS: ENALAPRIL MALEATE 5 MG TABLET (FP) PO SCH (09:00)
[2018-04-22] MEDS: CEFTRIAXONE 1 GM in DEXTROSE 5%-WATER - 50 ML IVPB SCH (09:00)
[2018-04-22] MEDS: FAMOTIDINE 20 MG/50 ML IVPB 20 MG/50 ML MG IVPB SCH ×2 (09:01→21:41)
[2018-04-22] MEDS: PANTOPRAZOLE SODIUM 40 MG in SODIUM CHLORIDE 100 ML IVPB SCH ×2 (09:01→21:41)
[2018-04-22 10:23] LABS: HEMATOCRIT 37.1 % (32.4-45.2); HEMOGLOBIN 12.3 GM/dL (10.7-15.3); MCH 30.6 pg (25.7-33.7); MEAN CELL VOLUME 92.8 fl (80-96); MEAN PLT VOLUME 8.7 fl (7.5-11.1); PLATELET COUNT 105 K/MM3 (134-434); RDW 13.8 % (11.6-15.6)
[2018-04-22 10:44] LABS: ANION GAP 7 MMOL/L (8-16); BLOOD UREA NITROGEN 6 mg/dL (7-18); CALCIUM 7.7 mg/dL (8.5-10.1); CHLORIDE 104 mmol/L (98-107); CO2 27 mmol/L (21-32); CREATININE 0.5 mg/dL (0.55-1.3); GLUCOSE,RANDOM 253 mg/dL (74-106); POTASSIUM 3.5 mmol/L (3.5-5.1); SODIUM 138 mmol/L (136-145)
[2018-04-22 11:20] VITALS: BMI 34.0
[2018-04-22 11:50] LABS: ERYTHROCYTE SEDIMENTATION RATE 10 mm/hr (0-30)
--- NOTE | 2018-04-22 12:50 | PN ---
Progress Note (short form) - Note Progress Note: Feels better No complaints No blood in stool No abd pain Blood sugar 200s Vital Signs Period Temp Pulse Resp BP Sys/Malik Pulse Ox Last 24 Hr 97.5 F-98.1 F 70-83 18-18 155-200/75-108 100 PE: AOx3 Neck: Supple, No JVD HEENT: EOMI Lungs: CTA CVS: S1S2 Abd: Benign Ext: No edema Neuro: No focal deficit CMP Sodium 138 mmol/L (136-145) 04/22/18 09:50 Potassium 3.5 mmol/L (3.5-5.1) 04/22/18 09:50 Chloride 104 mmol/L (98-107) 04/22/18 09:50 Carbon Dioxide 27 mmol/L (21-32) 04/22/18 09:50 Anion Gap 7 MMOL/L (8-16) L 04/22/18 09:50 BUN 6 mg/dL (7-18) L 04/22/18 09:50 Creatinine 0.5 mg/dL (0.55-1.3) L 04/22/18 09:50 Creat Clearance w eGFR > 60 (>60) 04/22/18 09:50 POC Glucometer 227 UNITS (80-120) 04/22/18 11:13 Random Glucose 253 mg/dL (74-106) H 04/22/18 09:50 Hemoglobin A1c % 10.0 % (4.2-6.3) H 04/19/18 06:30 Calcium 7.7 mg/dL (8.5-10.1) L 04/22/18 09:50 Phosphorus 2.7 mg/dL (2.5-4.9) 04/19/18 06:30 Magnesium 1.8 mg/dL (1.8-2.4) 04/19/18 06:30 Total Bilirubin 1.3 mg/dL (0.2-1) H 04/19/18 06:30 AST 66 U/L (15-37) H 04/19/18 06:30 ALT 73 U/L (13-61) H 04/19/18 06:30 Alkaline Phosphatase 149 U/L (45-117) H 04/19/18 06:30 C-Reactive Protein 0.8 MG/DL (0.00-0.3) H 04/22/18 09:50 Total Protein 5.6 g/dl (6.4-8.2) L 04/19/18 06:30 Albumin 2.6 g/dl (3.4-5.0) L 04/19/18 06:30 Lipase 368 U/L (73-393) 04/17/18 17:45 Current Medications Generic Name Dose Route Start Last Admin Trade Name Freq PRN Reason Stop Dose Admin Diphenoxylate HCl/Atropine 1 combo 04/19/18 14:20 Lomotil - PO Q8H PRN DIARRHEA Enalapril Maleate 5 mg 04/20/18 09:13 04/22/18 09:00 Vasotec - PO 5 mg DAILY NANCY Administration Metronidazole 250 mg in 50 mls @ 50 mls/hr 04/18/18 10:00 04/22/18 09:02 Flagyl 250mg Premixed Ivpb - IVPB 50 mls/hr Q8H-IV NANCY Administration Ceftriaxone Sodium 1 gm/ 50 mls @ 100 mls/hr 04/18/18 10:00 04/22/18 09:00 Dextrose IVPB 100 mls/hr DAILY NANCY Administration Protocol Famotidine/Sodium Chloride 20 mg in 50 mls @ 100 mls/hr 04/18/18 10:00 09:01 Pepcid 20 Mg Premixed Ivpb - IVPB 100 mls/hr BID NANCY Administration Pantoprazole Sodium 40 mg/ 100 mls @ 200 mls/hr 04/18/18 22:00 04/22/18 09:01 Sodium Chloride IVPB 200 mls/hr BID NANCY Administration Insulin Aspart 1 vial 04/20/18 22:00 04/22/18 11:17 Novolog Vial Sliding Scale - SQ Not Given ACHS NANCY Protocol Meclizine HCl 25 mg 04/18/18 08:22 Antivert - PO Q6H PRN VERTIGO Metoclopramide HCl 10 mg 04/18/18 18:30 04/22/18 10:17 Reglan Injection - IVPB 10 mg Q8H NANCY Administration Nadolol 20 mg 04/18/18 10:00 04/22/18 09:00 Corgard - PO 20 mg DAILY NANCY Administration Ondansetron HCl 4 mg 04/19/18 08:00 Zofran Injection IVPB Q4H PRN NAUSEA AND/OR VOMITING Oxycodone HCl 5 mg 04/20/18 17:27 04/22/18 04:43 Roxicodone - PO 5 mg Q6H PRN Administration PAIN LEVEL 6-10 AP: T2DM uncontrolled A1c 10: Cirhosis of liver Esophageal Varices HTN Diarrhoea Was on Basaglar 20 daily and Humalog 20 BID at home. Has Omnipod which she hasn' t started using yet. Start Levemir 12 units stat and daily in morning IV hydration Abx BGM QACHS Novolog SS coverage Nutrition consult Will f/u
[2018-04-22] MEDS ORDERED: INSULIN (LEVEMIR) 100 UNITS/ML UNITS SQ ONE (12:51)
--- NOTE | 2018-04-22 13:45 | PN ---
Progress Note, Physician Chief Complaint: ASLEEP COMFORTABLE NO NEW EVENTS - Current Medication List Current Medications: Active Medications Diphenoxylate HCl/Atropine (Lomotil -) 1 combo PO Q8H PRN PRN Reason: DIARRHEA Enalapril Maleate (Vasotec -) 5 mg PO DAILY [facility] Last Admin: 04/22/18 09:00 Dose: 5 mg Metronidazole (Flagyl 250mg Premixed Ivpb -) 250 mg in 50 mls @ 50 mls/hr IVPB Q8H-IV NANCY Last Admin: 04/22/18 09:02 Dose: 50 mls/hr Ceftriaxone Sodium 1 gm/ (Dextrose) 50 mls @ 100 mls/hr IVPB DAILY NANCY; Protocol Last Admin: 04/22/18 09:00 Dose: 100 mls/hr Famotidine/Sodium Chloride (Pepcid 20 Mg Premixed Ivpb -) 20 mg in 50 mls @ 100 mls/hr IVPB BID [facility] Last Admin: 04/22/18 09:01 Dose: 100 mls/hr Pantoprazole Sodium 40 mg/ (Sodium Chloride) 100 mls @ 200 mls/hr IVPB BID [facility] Last Admin: 04/22/18 09:01 Dose: 200 mls/hr Insulin Aspart (Novolog Vial Sliding Scale -) 1 vial SQ HS NANCY; Protocol Insulin Aspart (Novolog Vial Sliding Scale -) 1 vial SQ TIDAC [facility]; Protocol Insulin Detemir (Levemir Vial) 12 units SQ AM NANCY Meclizine HCl (Antivert -) 25 mg PO Q6H PRN PRN Reason: VERTIGO Metoclopramide HCl (Reglan Injection -) 10 mg IVPB Q8H [facility] Last Admin: 04/22/18 10:17 Dose: 10 mg Nadolol (Corgard -) 20 mg PO DAILY [facility] Last Admin: 04/22/18 09:00 Dose: 20 mg Ondansetron HCl (Zofran Injection) 4 mg IVPB Q4H PRN PRN Reason: NAUSEA AND/OR VOMITING Oxycodone HCl (Roxicodone -) 5 mg PO Q6H PRN PRN Reason: PAIN LEVEL 6-10 Last Admin: 04/22/18 04:43 Dose: 5 mg - Objective Vital Signs: Vital Signs Temperature 98 F 04/22/18 10:00 Pulse Rate 78 04/22/18 10:00 Respiratory Rate 18 01/01/19 10:00 Blood Pressure 177/80 H 04/22/18 10:00 O2 Sat by Pulse Oximetry (%) 100 04/21/18 21:00 Constitutional: Yes: No Distress Eyes: Yes: WNL HENT: Yes: WNL Neck: Yes: WNL Cardiovascular: Yes: WNL Respiratory: Yes: WNL Gastrointestinal: Yes: Tenderness Genitourinary: Yes: WNL Musculoskeletal: Yes: WNL Extremities: Yes: WNL Edema: No Integumentary: Yes: WNL Wound/Incision: Yes: Clean/Dry Neurological: Yes: WNL ...Motor Strength: WNL Psychiatric: Yes: WNL Labs: CBC, BMP 04/22/18 09:50 04/22/18 09:50 Problem List - Problems (1) Gastroenteritis and colitis, viral Code(s): A08.4 - VIRAL INTESTINAL INFECTION, UNSPECIFIED (2) Thrombocytopenia Code(s): D69.6 - THROMBOCYTOPENIA, UNSPECIFIED (3) Transaminitis Code(s): R74.0 - NONSPEC ELEV OF LEVELS OF TRANSAMNS & LACTIC ACID DEHYDRGNSE (4) Abdominal pain Code(s): R10.9 - UNSPECIFIED ABDOMINAL PAIN Qualifiers: Abdominal location: generalized Qualified Code(s): R10.84 - Generalized abdominal pain (5) Cirrhosis of liver Code(s): K74.60 - UNSPECIFIED CIRRHOSIS OF LIVER Qualifiers: Hepatic cirrhosis type: unspecified biliary cirrhosis Qualified Code(s): K74.5 - Biliary cirrhosis, unspecified (6) Hepatic encephalopathy Code(s): K72.90 - HEPATIC FAILURE, UNSPECIFIED WITHOUT COMA (7) Hepatitis C Code(s): B19.20 - UNSPECIFIED VIRAL HEPATITIS C WITHOUT HEPATIC COMA Assessment/Plan IV ABX CONTINUED FOR GASTROENTERITIS/COLITIS LIVER ENZYMES STABLE GI FOLLOW UP OUTPATIENT ENDOCRINE CONSULT APPRECIATED FOR DM CONTROL NUTRITION EVAL
[2018-04-22] MEDS ORDERED: INSULIN SLIDING SCALE (NOVOLOG) 1 VIAL SQ SCH (22:00)
[2018-04-23] MEDS: METOCLOPRAMIDE HCL INJECTION 10 MG/2 ML VIAL IVPB SCH ×2 (02:46→09:37)
[2018-04-23] MEDS: INSULIN SLIDING SCALE (NOVOLOG) 1 VIAL SQ SCH (06:22)
[2018-04-23] MEDS ORDERED: INSULIN (LEVEMIR) 100 UNITS/ML UNITS SQ SCH (07:00)
[2018-04-23] MEDS ORDERED: cefTRIAXone SODIUM 1 GM VIAL ONE (09:06)
[2018-04-23] MEDS ORDERED: DEXTROSE 5%-WATER - 50 ML IVPB ONE (09:07)
[2018-04-23] MEDS: ENALAPRIL MALEATE 5 MG TABLET (FP) PO SCH (09:36)
[2018-04-23] MEDS: CEFTRIAXONE 1 GM in DEXTROSE 5%-WATER - 50 ML IVPB SCH (09:36)
[2018-04-23] MEDS: FAMOTIDINE 20 MG/50 ML IVPB 20 MG/50 ML MG IVPB SCH (09:36)
[2018-04-23] MEDS: PANTOPRAZOLE SODIUM 40 MG in SODIUM CHLORIDE 100 ML IVPB SCH (09:36)
[2018-04-23] MEDS: NADOLOL 20 MG TABLET (FP) PO SCH (09:36)
--- NOTE | 2018-04-23 09:38 | DS ---
Physical Examination Vital Signs: Vital Signs Temperature 97.5 F L 04/23/18 05:00 Pulse Rate 74 04/23/18 05:00 Respiratory Rate 18 04/23/18 05:00 Blood Pressure 166/77 04/23/18 05:00 O2 Sat by Pulse Oximetry (%) 98 04/22/18 21:00 Constitutional: Yes: No Distress Eyes: Yes: WNL HENT: Yes: WNL Neck: Yes: WNL Cardiovascular: Yes: WNL Respiratory: Yes: WNL Gastrointestinal: Yes: WNL Musculoskeletal: Yes: WNL Extremities: Yes: WNL Edema: No Integumentary: Yes: WNL Wound/Incision: Yes: Clean/Dry Neurological: Yes: WNL ...Motor Strength: WNL Psychiatric: Yes: WNL Labs: CBC, BMP 04/22/18 09:50 04/22/18 09:50 Discharge Summary Reason For Visit: URINARY TRACT INFECTION VIRAL GASTROENTERITIS Current Active Problems Epigastric abdominal pain (Acute) Gastroenteritis and colitis, viral (Acute) Hepatitis C (Acute) History of esophageal varices (Acute) Hypomagnesemia (Acute) Infectious diarrhea (Acute) Thrombocytopenia (Acute) Transaminitis (Acute) UTI (urinary tract infection) (Acute) Uncontrolled diabetes mellitus (Acute) Vertigo (Acute) Procedures: Principal: CT SCAN Hospital Course: ADMITTED COLITIS ACUTE, TREATED IV ABX, IVF BOWEL REST Condition: Improved - Instructions Diet, Activity, Other Instructions: LOW RESIDUE DIET SEE DR ROJO 3-4 WEEKS AUGMENTIN 2XDAY FOR 7 DAYS Referrals: Joel Rojo MD [Primary Care Provider] - Disposition: HOME - Home Medications Comprehensive Discharge Medication List: Ambulatory Orders Enalapril Maleate 2.5 mg PO DAILY 12/17/17 Enalapril Maleate 5 mg PO DAILY 12/17/17 Esomeprazole Magnesium 40 mg PO DAILY 12/17/17 Ferrous Sulfate 325 mg PO DAILY 12/17/17 Insulin Lispro [Humalog Kwikpen U-200] 30 unit SQ DAILY 12/17/17 Lactulose [Cephulac -] 30 ml PO DAILY 12/17/17 Amox-Tr/K Cl [Augmentin - 500Mg Tablet] 1 tab PO BID #14 tab 04/23/18 Diphenoxylate 2.5/Atropine.025 [Lomotil -] 1 combo PO Q8H PRN tablet MDD 3 06/10 Meclizine HCl [Antivert -] 25 mg PO Q6H PRN #30 tablet 04/23/18 Nadolol 20 mg PO DAILY #30 tablet 04/23/18 Nadolol [Corgard -] 20 mg PO DAILY tablet 04/23/18
--- NOTE | 2018-04-23 10:21 | PN ---
GI Progress Note Subjective: Patient is a 63 year old female with past medical history of CHC complicated cirrhosis, s/p antiviral with sustained viral response, DM, HTN, vertigo. Initially presented to ED with complaints of non-bloody diarrhea with vomiting accompanied by lower abdominal pain. Treated with coarse of IV antibiotic therapy of ceftriaxone and flagyl. Patient states not experiencing diarrhea for 4 days. Denies abdominal pain. - Objective Vital Signs: Vital Signs Temperature 97.5 F L 04/23/18 05:00 Pulse Rate 74 04/23/18 05:00 Respiratory Rate 18 04/23/18 05:00 Blood Pressure 166/77 04/23/18 05:00 O2 Sat by Pulse Oximetry (%) 98 04/22/18 21:00 Constitutional: Well Nourished, No Distress, Calm Eyes: Yes: Conjunctiva Clear Cardiovascular: Yes: WNL, Regular Rate and Rhythm Respiratory: Yes: WNL, Regular, CTA Bilaterally Gastrointestinal Inspection: Yes: WNL ...Auscultate: Yes: Normoactive Bowel Sounds ...Palpate: Yes: Soft ...Percussion: Yes: Tympanitic Integumentary: Yes: WNL Neurological: Yes: Alert, Oriented Psychiatric: Yes: Alert, Oriented Labs: CBC, BMP 04/22/18 09:50 04/22/18 09:50 Assessment/Plan Diarrhea-resolved, most likely infectious discussed low fiber diet instructed and made aware to follow up with GI for outpatient GI workup Problem List - Problems (1) Infectious diarrhea Code(s): A09 - INFECTIOUS GASTROENTERITIS AND COLITIS, UNSPECIFIED (2) Epigastric abdominal pain Code(s): R10.13 - EPIGASTRIC PAIN (3) History of esophageal varices Code(s): Z87.19 - PERSONAL HISTORY OF OTHER DISEASES OF THE DIGESTIVE SYSTEM
[2018-04-23 10:25] VITALS: BP 180/90; PULSE 78; TEMP 97.8
== END 2018-04-23 10:33 | disposition home or self-care (01) | DRG 249 ==
LOC: JER 16:09 → JERBED 23:24 → J4W 04-18 05:56 → OBSVTOIN 04-21 12:52
PROVIDERS: ADMIT Internal Medicine; ATTEND Family Medicine
DX: A08.4 Viral intestinal infection, unspecified (principal); D69.6 Thrombocytopenia, unspecified; I85.00 Esophageal varices without bleeding; K74.60 Unspecified cirrhosis of liver; E11.65 Type 2 diabetes mellitus with hyperglycemia; E83.42 Hypomagnesemia; N39.0 Urinary tract infection, site not specified; K72.90 Hepatic failure, unspecified without coma; E86.1 Hypovolemia; E66.9 Obesity, unspecified; Z68.34 Body mass index [BMI] 34.0-34.9, adult; R42 Dizziness and giddiness; R74.0 Nonspecific elevation of levels of transaminase and lactic acid dehydrogenase [LDH]; I10 Essential (primary) hypertension; Z79.4 Long term (current) use of insulin; D64.9 Anemia, unspecified; R00.0 Tachycardia, unspecified; Z86.19 Personal history of other infectious and parasitic diseases; I45.81 Long QT syndrome
CPT/HCPCS: 36415; 71046-TC-FY; 74177-TC; 80048; 80053; 81003; 81015; 82272; 82962; 83036; 83690; 83735; 84100; 85025; 85027; 85651; 86140; 87040; 87045; 87046; 87177; 87205; 87209; 87324; 87449; 87798; 93005; 93010; 99281-25; G0378; J7030

== ENCOUNTER 2023-02-03 20:02 | Inpatient (IN) | payer MEDICARE ==
[2023-02-03 21:31] LABS: EPI CELLS 23 /uL (0-25.1); HYALINE CASTS 1 /uL (0-3.1); URINE APPEARANCE CLEAR; URINE BACTERIA 116 /uL (0-1359); URINE BILIRUBIN NEGATIVE (NEGATIVE); URINE COLOR YELLOW; URINE GLUCOSE (UA) 3+ (NEGATIVE); URINE KETONE NEGATIVE (NEGATIVE); URINE LEUK ESTERASE NEGATIVE (NEGATIVE); URINE NITRITE NEGATIVE (NEGATIVE); URINE PROTEIN 4+ (NEGATIVE); URINE RBC 75 /uL (0-23.9); URINE UROBILINOGEN 0.2 mg/dL (0.2-1.0)
[2023-02-03 21:35] LABS: URINE WBC 68 /uL (0-25.8)
[2023-02-03 22:01] LABS: BASO % 0.7 % (0-2.0); EOS % 1.2 % (0-4.5); HEMATOCRIT 37.2 % (32.4-45.2); HEMOGLOBIN 12.4 GM/dL (10.7-15.3); LYMPH % 26.5 % (8-40); MCH 30.1 pg (25.7-33.7); MCHC 33.2 g/dl (32.0-36.0); MEAN CELL VOLUME 90.6 fl (80-96); MEAN PLT VOLUME 9.4 fl (7.5-11.1); MONO % 8.3 % (3.8-10.2); NEUT % 63.3 % (42.8-82.8); PLATELET COUNT 169 10^3/uL (134-434); RDW 13.7 % (11.6-15.6); WHITE BLOOD COUNT 8.7 K/mm3 (4.0-10.0)
[2023-02-03 22:25] LABS: CALCIUM 8.9 mg/dL (8.5-10.1)
[2023-02-03 22:26] LABS: ALBUMIN 3.1 g/dl (3.4-5.0); BLOOD UREA NITROGEN 42.1 mg/dL (7-18)
[2023-02-03 22:31] LABS: BILIRUBIN,TOTAL 0.9 mg/dL (0.2-1); TOT PROT 6.2 g/dl (6.4-8.2)
[2023-02-03] MEDS ORDERED: INSULIN (LEVEMIR) 100 UNITS/ML UNITS SQ ONE (22:47)
[2023-02-03] MEDS ORDERED: amLODIPine BESYLATE 10 MG TABLET (FP) PO ONE (22:49)
[2023-02-03] MEDS ORDERED: amLODIPine BESYLATE 10 MG TABLET (FP) ONE (22:57)
[2023-02-03] MEDS ORDERED: cefTRIAXone SODIUM 1 GM VIAL ONE (22:58)
[2023-02-03] MEDS ORDERED: SODIUM CHLORIDE 0.45% 1,000 ML IV SCH (23:45)
[2023-02-04] MEDS ORDERED: LACTULOSE 20 GM/30 ML UDC (FOR ORAL USE ONLY) PO ONE ×2 (00:04→12:42)
[2023-02-04] MEDS ORDERED: LACTULOSE 20 GM/30 ML UDC (FOR ORAL USE ONLY) ONE (00:08)
[2023-02-04 01:54] VITALS: RESP 18; BMI 27.1
[2023-02-04] MEDS ORDERED: ALBUTEROL SO4 HFA INHALER IH PRN (05:17)
[2023-02-04] MEDS: INSULIN SLIDING SCALE (NOVOLOG) 1 VIAL SQ SCH ×4 (06:10→21:42)
[2023-02-04] MEDS ORDERED: LACTULOSE 20 GM/30 ML UDC (FOR ORAL USE ONLY) PO SCH (10:00)
[2023-02-04] MEDS ORDERED: SPIRONOLACTONE 25 MG TABLET PO SCH (10:00)
[2023-02-04] MEDS ORDERED: HEPARIN NA (PORCINE) 5,000 UNITS/ML 1ML VIAL SQ SCH (10:00)
[2023-02-04 10:01] LABS: BASO % 1.1 % (0-2.0); EOS % 1.7 % (0-4.5); HEMATOCRIT 31.1 % (32.4-45.2); HEMOGLOBIN 10.7 GM/dL (10.7-15.3); LYMPH % 28.4 % (8-40); MCH 30.9 pg (25.7-33.7); MCHC 34.4 g/dl (32.0-36.0); MEAN CELL VOLUME 89.7 fl (80-96); NEUT % 59.8 % (42.8-82.8); PLATELET COUNT 134 10^3/uL (134-434); RBC 3.46 M/mm3 (3.60-5.2); RDW 13.8 % (11.6-15.6); WHITE BLOOD COUNT 6.3 K/mm3 (4.0-10.0)
[2023-02-04] MEDS: LOSARTAN POTASSIUM 50 MG TABLET PO SCH (10:07)
[2023-02-04 10:23] LABS: POTASSIUM 3.7 mmol/L (3.5-5.1)
[2023-02-04 10:31] LABS: CALCIUM 8.5 mg/dL (8.5-10.1)
[2023-02-04 10:35] LABS: CREATININE 1.8 mg/dL (0.55-1.3)
[2023-02-04] MEDS: HEPARIN NA (PORCINE) 5,000 UNITS/ML 1ML VIAL SQ SCH ×2 (13:23→21:42)
[2023-02-04] MEDS: LACTULOSE 20 GM/30 ML UDC (FOR ORAL USE ONLY) PO SCH ×2 (13:23→21:41)
[2023-02-04] MEDS: SODIUM CHLORIDE 0.45% 1,000 ML IV SCH (18:34)
[2023-02-04] MEDS: CEFTRIAXONE 1 GM in DEXTROSE 5%-WATER - 50 ML IVPB SCH (21:42)
[2023-02-04] MEDS: RIFAXIMIN 550 MG TABLET PO SCH (21:47)
[2023-02-05] MEDS: SODIUM CHLORIDE 0.45% 1,000 ML IV SCH ×2 (05:43→16:35)
[2023-02-05] MEDS: HEPARIN NA (PORCINE) 5,000 UNITS/ML 1ML VIAL SQ SCH ×3 (05:44→21:51)
[2023-02-05] MEDS: LACTULOSE 20 GM/30 ML UDC (FOR ORAL USE ONLY) PO SCH ×3 (05:44→21:51)
[2023-02-05] MEDS: INSULIN SLIDING SCALE (NOVOLOG) 1 VIAL SQ SCH ×4 (06:00→21:52)
[2023-02-05] MEDS: INSULIN (LEVEMIR) 100 UNITS/ML UNITS SQ SCH (06:00)
[2023-02-05] MEDS: CEFTRIAXONE 1 GM in DEXTROSE 5%-WATER - 50 ML IVPB SCH (09:57)
[2023-02-05] MEDS: LOSARTAN POTASSIUM 50 MG TABLET PO SCH (09:58)
[2023-02-05] MEDS: RIFAXIMIN 550 MG TABLET PO SCH ×2 (09:58→21:52)
[2023-02-05 10:20] LABS: HEMATOCRIT 30.3 % (32.4-45.2); HEMOGLOBIN 10.6 GM/dL (10.7-15.3); MCH 30.8 pg (25.7-33.7); MEAN PLT VOLUME 9.6 fl (7.5-11.1); PLATELET COUNT 131 10^3/uL (134-434); RBC 3.45 M/mm3 (3.60-5.2); RDW 13.7 % (11.6-15.6)
[2023-02-05 10:23] LABS: INR 1.23 (0.83-1.09); PROTHROMBIN TIME (PATIENT) 14.2 SEC (9.7-13.0)
[2023-02-05 10:26] LABS: ACTIVATED PTT 25.6 SECONDS (25.2-36.5)
[2023-02-05 10:51] LABS: ALBUMIN 2.6 g/dl (3.4-5.0)
[2023-02-05 10:52] LABS: BLOOD UREA NITROGEN 37.6 mg/dL (7-18); CALCIUM 8.3 mg/dL (8.5-10.1)
[2023-02-05 10:54] LABS: MAGNESIUM 1.3 mg/dL (1.8-2.4)
[2023-02-05 10:55] LABS: CREATININE 1.8 mg/dL (0.55-1.3); PHOSPHOROUS 3.7 mg/dL (2.5-4.9)
[2023-02-05 10:56] LABS: BILIRUBIN,TOTAL 0.6 mg/dL (0.2-1); TOT PROT 5.2 g/dl (6.4-8.2)
[2023-02-06] MEDS: SODIUM CHLORIDE 0.45% 1,000 ML IV SCH (06:23)
[2023-02-06] MEDS: LACTULOSE 20 GM/30 ML UDC (FOR ORAL USE ONLY) PO SCH ×2 (06:23→13:29)
[2023-02-06] MEDS: HEPARIN NA (PORCINE) 5,000 UNITS/ML 1ML VIAL SQ SCH ×2 (06:24→13:29)
[2023-02-06] MEDS: INSULIN SLIDING SCALE (NOVOLOG) 1 VIAL SQ SCH ×2 (06:24→11:21)
[2023-02-06] MEDS: INSULIN (LEVEMIR) 100 UNITS/ML UNITS SQ SCH (06:24)
[2023-02-06 09:56] VITALS: BP 176/72; PULSE 97; TEMP 98.3
[2023-02-06] MEDS: LOSARTAN POTASSIUM 50 MG TABLET PO SCH (10:01)
[2023-02-06] MEDS: CEFTRIAXONE 1 GM in DEXTROSE 5%-WATER - 50 ML IVPB SCH (10:01)
[2023-02-06] MEDS: RIFAXIMIN 550 MG TABLET PO SCH (10:01)
[2023-02-06] MEDS ORDERED: SODIUM CHLORIDE 0.45% 1,000 ML IV SCH (12:48)
[2023-02-07 00:07] LABS: FIBROSIS SCORE. 0.75 (0.00-0.21); HCV ALPHA 2 MACRO CHART 336 mg/dL (110-276); NECRO.INFLAM ACT.SCORE 0.18 (0.00-0.17); NECROINFLAM. ACTIVITY GRADE A0-A1 (.)
== END 2023-02-06 14:56 | disposition home or self-care (01) | DRG 433 ==
LOC: JER 20:02 → JERBED 23:55 → J5S 02-04 01:42
PROVIDERS: ADMIT Internal Medicine; ATTEND Family Medicine
DX: K74.60 Unspecified cirrhosis of liver (principal); N17.9 Acute kidney failure, unspecified; I10 Essential (primary) hypertension; K76.82 Hepatic encephalopathy; E78.5 Hyperlipidemia, unspecified; D64.9 Anemia, unspecified; E86.0 Dehydration; E87.5 Hyperkalemia; Z91.148 Patient's other noncompliance with medication regimen for other reason; E11.65 Type 2 diabetes mellitus with hyperglycemia; Z79.4 Long term (current) use of insulin
CPT/HCPCS: 36415; 70450-TC; 71045-TC-FY; 76705-TC; 76775-TC; 80048; 80053; 81003; 82140; 82172; 82378; 82962; 82977; 83010; 83735; 83883; 84100; 84460; 84484; 85025; 85027; 85610; 85730; 86301; 86304; 87040; 87086; 87186; 87522; 93005; 93010; 97116-GP; 97161-GP; 99285-25; J1644